=== PATIENT | female | born 1950 | race Caucasian/White ===

== ENCOUNTER 2017-01-08 23:20 | Emergency (ER) | payer MEDICARE, SELFPAY ==
[2017-01-08] MEDS ORDERED: Adenosine 12 MG/4 ML SDV ONE (23:28)
--- NOTE | 2017-01-08 23:50 | EDM.PDOC ---
ED HISTORY OF PRESENT ILLNESS - General Chief Complaint: Cardiovascular Problem Stated Complaint: [facility] Time Seen by Provider: 01/08/17 23:29 Source of Information: Reports: Patient, RN notes reviewed History Limitations: Reports: No limitations - History of Present Illness INITIAL COMMENTS - FREE TEXT/NARRATIVE: The patient states that she developed palpitations this morning, the sensation of a racing heart, but that her symptoms became worse this evening. She denies having chest pain, dyspnea nausea, and diaphoresis, or sense of impending doom. She did have 4 episodes of diarrhea today, and she reports developing bilateral tingling hands tonight. No recent vomiting or constipation. The patient states that she has had similar symptoms perhaps 5 times since 1999. She states that her Cloth Tester believes that she has atrial fibrillation and is treating her with amiodarone and Coumadin. Medical records indicate that she was seen in this ED on 03/31/2016 with a narrow complex regular tachycardia which converted to a normal sinus rhythm after adenosine. She was also seen in this ED 11/01/2014 for a similar- appearing ECG - narrow complex regular tachycardia. On that earlier visit, the patient was not given adenosine. She was given Cardizem and converted to a normal sinus rhythm after about 15 minutes. Her diagnosis was nonspecific tachycardia. - Related Data Allergies/ADRs: Allergies Allergy/AdvReac Type Severity Reaction Status Date / Time No Known Allergies Allergy Verified 05/25/15 23:50 Home Meds: Home Meds Acetaminophen 650 mg PO Q4H PRN 11/01/14 [History] Calcium Carbonate 500 mg PO BID 11/01/14 [History] Diltiazem HCl [Diltiazem 24Hr ER] 360 mg PO DAILY #30 cap.er.24h 11/01/14 [Rx] Furosemide [Lasix] 20 mg PO DAILY 11/01/14 [History] LORazepam 1 mg PO BID 11/01/14 [History] Magnesium Citrate 400 mg PO DAILY 11/01/14 [History] Niacin 100 mg PO DAILY 11/01/14 [History] Omeprazole 20 mg PO DAILY 11/01/14 [History] Potassium Chloride [Klor-Con M20] 20 meq PO DAILY 11/01/14 [History] Pravastatin [Pravachol] 40 mg PO BEDTIME 11/01/14 [History] Warfarin [Coumadin] 2 mg PO MOWEFR 11/01/14 [History] Warfarin [Coumadin] 4 mg PO ASDIRECTED 11/01/14 [History] metFORMIN [Glucophage] 500 mg PO BID 11/01/14 [History] A/C/E/Zinc Ox/Cupric Ox/Lutein [Macuvite [employer] Tablet] 1 tab PO DAILY [History] Acetaminophen/Diphenhydramine [Pain Relief Pm Caplet] 1 tab PO BEDTIME 03/31/16 [History] Albuterol [Proair HFA] 2 puff INH Q6H PRN 03/31/16 [History] Cholecalciferol (Vitamin D3) [Vitamin D3] 800 units PO DAILY 03/31/16 [History] Lisinopril 20 mg PO DAILY 03/31/16 [History] Amiodarone HCl 100 mg PO DAILY 01/08/17 [History] Warfarin [Coumadin] 5 mg PO WEEKLY 01/08/17 [History] Past Medical History Other HEENT History: wears eyeglasses Cardiovascular History: Reports: High cholesterol, Hypertension Respiratory History: Reports: COPD (not formally diagnosed) Gastrointestinal History: Reports: GERD 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 History: Reports: Musculoskeletal History: Reports: Arthritis, Back pain, chronic, Fracture Psychiatric History: Reports: Anxiety, Depression Endocrine/Metabolic History: Reports: Diabetes, type II, Obesity/BMI 30+ Oncologic (Cancer) History: Reports: Breast - Infectious Disease History Infectious Disease History: Reports: Chicken pox, Mumps - Past Surgical History HEENT Surgical History: Reports: Cataract surgery, Tonsillectomy GI Surgical History: Reports: Appendectomy, Cholecystectomy Female Surgical History: Reports: Hysterectomy, Salpingo-oophorectomy, Other (see below) (Left lumpectomy) Neurological Surgical History: Reports: Lumbar spine (fusion?) Musculoskeletal Surgical History: Reports: Knee replacement (left) Social & Family History - Family History Family Medical History: Noncontributory - Tobacco Use Smoking Status *Q: Never Smoker Second Hand Smoke Exposure: No - Caffeine Use Caffeine Use: Reports: Soda - Alcohol Use Alcohol Use History: Yes Days Per Week of Alcohol Use: 0 Alcohol Use Frequency: Socially - Recreational Drug Use Recreational Drug Use: No - Living Situation & Occupation Living situation: Reports: , alone Occupation: employed (Part-time [employer]) ED ROS GENERAL - Review of Systems Review Of Systems: See Below Constitutional: Reports: no symptoms HEENT: Reports: No symptoms Respiratory: Reports: No Symptoms Cardiovascular: Reports: No symptoms Endocrine: Reports: no symptoms GI/Abdominal: Reports: Diarrhea (as per the HPI) : Reports: no symptoms Musculoskeletal: Reports: no symptoms Skin: Reports: no symptoms Neurological: Reports: No Symptoms Psychiatric: Reports: No symptoms Hematologic/Lymphatic: Reports: no symptoms Immunologic: Reports: no symptoms ED EXAM, GENERAL - Physical Exam Exam: See Below Exam Limited By: No limitations General Appearance: alert, WD/WN, anxious, mild distress Eye Exam: bilateral eye: EOMI, normal inspection Ears: normal external exam, hearing grossly normal Ear Exam: bilateral ear: auricle normal Nose: normal inspection, no blood Throat/Mouth: Normal inspection, Normal lips, Normal voice, No airway compromise Head: atraumatic, normocephalic Neck: normal inspection, full range of motion Respiratory/Chest: no respiratory distress, lungs clear, normal breath sounds, no accessory muscle use, chest non-tender Cardiovascular: normal peripheral pulses, no edema, no gallop, no JVD, no murmur , no rub, tachycardia (regular) Peripheral Pulses: 4+: radial (L), radial (R) GI/Abdominal: normal bowel sounds, soft, non tender, no organomegaly, no distention, no abnormal bruit, no mass, other (Obese) Extremities: normal inspection, normal range of motion, non-tender, normal capillary refill, no pedal edema Neurological: alert, oriented, normal cognition, no motor/sensory deficits Psychiatric: normal affect Skin Exam: Warm, Dry, Intact, Normal color, No rash Lymphatic: no adenopathy EKG INTERPRETATION EKG Date: 01/08/17 Time: 23:21 Rhythm: other (Suspect A-flutter 2:1) Rate (beats/min): 149 [place]: LAD-left axis deviation P-wave: absent QRS: normal ST-T: depressed (lateral leads, likely rate related) QT: prolonged (QTc 523) Comparison: other: (Nearly identical to ECG and 03/31/2016, subsequently converted to NSR with adenosine) Course - Vital Signs Last Recorded V/S: Last Vital Signs Temp 36.8 C 01/08/17 23:23 Pulse 85 01/09/17 03:10 Resp 18 01/09/17 03:10 BP 122/67 01/09/17 03:10 Pulse Ox 97 01/09/17 03:10 - Orders/Labs/Meds Orders: Active Orders 24 hr Category Date Time Status EKG Documentation Completion [RC] STAT Care 01/08/17 23:30 Active EKG Documentation Completion [RC] STAT Care 01/09/17 00:31 Active Ang Chest [CT] Stat Exams 01/09/17 01:12 Taken Chest 1V Frontal [CR] Stat Exams 01/08/17 23:57 Taken Sodium Chloride 0.9% [Normal Saline] 1,000 ml Med 01/09/17 01:15 Active IV ASDIRECTED Sodium Chloride 0.9% [Normal Saline] 100 ml Med 01/09/17 01:15 Active IV ASDIRECTED Sodium Chloride 0.9% [Saline Flush] Med 01/09/17 01:15 Active 10 ml FLUSH ONETIME PRN Medication Orders Sodium Chloride (Normal Saline) 1,000 mls @ 150 mls/hr IV ASDIRECTED KESHA Last Admin: 01/09/17 02:08 Dose: 150 mls/hr Sodium Chloride (Normal Saline) 100 mls @ 65 mls/hr IV ASDIRECTED KESHA Last Admin: 01/09/17 02:16 Dose: 65 mls/hr Sodium Chloride (Saline Flush) 10 ml FLUSH ONETIME PRN PRN Reason: IV FLUSH Last Admin: 01/09/17 02:11 Dose: 10 ml Admin: 01/09/17 02:08 Dose: 10 ml Labs: Laboratory Tests 01/08/17 01/08/17 01/08/17 Range/Units 23:55 23:55 23:55 WBC 9.45 (3.98-10.04) K/mm3 RBC 4.75 (3.98-5.22) M/mm3 Hgb 14.0 (11.2-15.7) gm/L Hct 41.2 (34.1-44.9) % MCV 86.7 (79.4-94.8) fl MCH 29.5 (25.6-32.2) pg MCHC 34.0 (32.2-35.5) g/dl RDW Std Deviation 45.0 (36.4-46.3) fL Plt Count 245 (182-369) K/mm3 MPV 9.5 (9.4-12.3) fl Neutrophils % (Manual) 79 H (40-60) % Band Neutrophils % 0 (0-10) % Lymphocytes % (Manual) 14 L (20-40) % Atypical Lymphs % 0 % Monocytes % (Manual) 7 (2-10) % Eosinophils % (Manual) 0 L (0.7-5.8) % Basophils % (Manual) 0 L (0.1-1.2) Platelet Estimate Adequate Plt Morphology Comment Normal RBC Morph Comment Normal PT 16.7 H (8.0-13.0) SECONDS INR 1.49 APTT 32 (22-36) SECONDS D-Dimer, Quantitative 1.44 H (0.19-0.59) mg/L Sodium 140 (136-145) mEq/L Potassium 3.7 (3.5-5.1) mEq/L Chloride 101 (98-107) mEq/L Carbon Dioxide 24 (21-32) mEq/L Anion Gap 18.7 H (5-15) BUN 15 (7-18) mg/dL Creatinine 0.8 (0.55-1.02) mg/dL Est Cr Clr Drug Dosing 64.76 mL/min Estimated GFR (MDRD) > 60 (>60) mL/min BUN/Creatinine Ratio 18.8 H (14-18) Glucose 126 H (80-115) mg/dL Calcium 8.9 (8.5-10.1) mg/dL Magnesium 1.7 L (1.8-2.4) mg/dl Total Bilirubin 1.0 (0.2-1.0) mg/dL AST 37 (15-37) U/L ALT 27 (14-59) U/L Alkaline Phosphatase 79 (46-116) U/L Troponin I 0.052 (0.00-0.056) ng/mL B-Natriuretic Peptide (0-100) pg/mL Total Protein 6.9 (6.4-8.2) g/dl Albumin 3.9 (3.4-5.0) g/dl Globulin 3.0 gm/dL Albumin/Globulin Ratio 1.3 (1-2) 03/26/17 Range/Units 23:55 WBC (3.98-10.04) K/mm3 RBC (3.98-5.22) M/mm3 Hgb (11.2-15.7) gm/L Hct (34.1-44.9) % MCV (79.4-94.8) fl MCH (25.6-32.2) pg MCHC (32.2-35.5) g/dl RDW Std Deviation (36.4-46.3) fL Plt Count (182-369) K/mm3 MPV (9.4-12.3) fl Neutrophils % (Manual) (40-60) % Band Neutrophils % (0-10) % Lymphocytes % (Manual) (20-40) % Atypical Lymphs % % Monocytes % (Manual) (2-10) % Eosinophils % (Manual) (0.7-5.8) % Basophils % (Manual) (0.1-1.2) Platelet Estimate Plt Morphology Comment RBC Morph Comment PT (8.0-13.0) SECONDS INR APTT (22-36) SECONDS D-Dimer, Quantitative (0.19-0.59) mg/L Sodium (136-145) mEq/L Potassium (3.5-5.1) mEq/L Chloride (98-107) mEq/L Carbon Dioxide (21-32) mEq/L Anion Gap (5-15) BUN (7-18) mg/dL Creatinine (0.55-1.02) mg/dL Est Cr Clr Drug Dosing mL/min Estimated GFR (MDRD) (>60) mL/min BUN/Creatinine Ratio (14-18) Glucose (80-115) mg/dL Calcium (8.5-10.1) mg/dL Magnesium (1.8-2.4) mg/dl Total Bilirubin (0.2-1.0) mg/dL AST (15-37) U/L ALT (14-59) U/L Alkaline Phosphatase (46-116) U/L Troponin I (0.00-0.056) ng/mL B-Natriuretic Peptide 516 H (0-100) pg/mL Total Protein (6.4-8.2) g/dl Albumin (3.4-5.0) g/dl Globulin gm/dL Albumin/Globulin Ratio (1-2) Meds: Medications Generic Name Dose Route Start Last Admin Trade Name Freq PRN Reason Stop Dose Admin Sodium Chloride 1,000 mls @ 150 mls/hr 01/09/17 01:15 01/09/17 02:08 Normal Saline IV 150 mls/hr ASDIRECTED KESHA Administration Sodium Chloride 100 mls @ 65 mls/hr 01/09/17 01:15 01/09/17 02:16 Normal Saline IV 65 mls/hr ASDIRECTED KESHA Administration Sodium Chloride 10 ml 01/09/17 01:15 01/09/17 02:11 Saline Flush FLUSH 10 ml ONETIME PRN Administration IV FLUSH Discontinued Medications Generic Name Dose Route Start Last Admin Trade Name [place] PRN Reason Stop Dose Admin Adenosine Confirm 01/08/17 23:28 01/09/17 00:32 Adenocard Administered 01/08/17 23:29 Not Given Dose 12 mg .ROUTE .STK-MED ONE Adenosine 12 mg 01/09/17 00:30 01/09/17 00:32 Adenocard IVPUSH 01/09/17 00:31 12 mg NOW ONE Administration Iopamidol 100 ml 01/09/17 01:15 01/09/17 02:10 Isovue-370 (76%) IVPUSH 01/09/17 01:16 100 ml ONETIME ONE Administration Iopamidol 50 ml 01/09/17 01:15 01/09/17 02:10 Isovue-370 (76%) IVPUSH 01/09/17 01:16 50 ml ONETIME ONE Administration - Radiology Interpretation Free Text/Narrative:: Portal chest radiograph appears to be grossly normal. Cardiac silhouette is at the upper limits of normal. No pulmonary vascular congestion. No pleural effusions. No focal infiltrate. No pneumothorax. Right-sided defibrillation pad noted. Formal read per the Radiologist pending. CT angiogram of the chest is read by virtual radiology as: 1. No evidence of pulmonary embolus 2. Pulmonary arterial hypertension 3. Very subtle mosaic attenuation or pattern to the lung parenchyma suggests underlying small airways disease. - Re-Assessments/Exams Free Text/Narrative Re-Assessment/Exam: 01/09/17 00:19 The patient was given adenosine 12 mg IVP with a continuous ECG. The patient converted to a normal sinus rhythm, and has remained in that rhythm. Post- procedure ECG incision normal sinus rhythm at 93 beats per minute. There are no acute ST or T wave changes. No intraventricular conduction delays. No LAD. There is likely LVH. This is an otherwise normal ECG. 01/09/17 01:15 The patient's D-dimer returned elevated at 1.44. While it's unlikely that a PE would cause an AVNRT or SVT, I have ordered a CTA to rule out PE. 01/09/17 02:42 Test results discussed with the patient. Today's workup is unremarkable. The patient remains in NSR following chemical cardioversion with adenosine. 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 Additionally, her presentation is vertex" to that of 03/31/2016, and her ECG is present medical to that of 2014, although at that time she was not treated with adenosine. I have found no ECGs consistent with atrial fibrillation or atrial flutter. I am suggesting to the patient that she followup with her tank driver, Dr. Ryan, for reevaluation. If the patient indeed has AVNRT and no history of atrial fibrillation or flutter, she does not need to be on either Coumadin or amiodarone. 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 An ECG showed a narrow complex tachycardia, regular, at 149 beats per minute. You converted to a normal sinus rhythm after treatment with adenosine. It is MOST LIKELY that your tachycardia was due to an AVNRT. On review of your prior medical records, it appears you were suffering from the exact same thing on 03/31/2016. You were converted to a normal sinus rhythm after adenosine then, too. Additionally, an ECG on 11/01/2014 looks the same as that from 03/31/2016 and [facility], although you were not treated with adenosine on that visit. None of the ECGs we have on record show atrial fibrillation or atrial flutter. We recommend you discuss this with your Cloth Tester, Dr. Ryan. If you do not have atrial fibrillation or atrial flutter, you probably don't need to be on Coumadin and amiodarone. Until then, continue to take your usual medications as prescribed. If any other problems, please do not hesitate to return to the ER. DO NOT TAKE METFORMIN UNTIL MORNING OF JANUARY 11 - My Orders Last 24 Hours: My Active Orders 01/08/17 23:30 EKG Documentation Completion [RC] STAT 01/08/17 23:57 Chest 1V Frontal [CR] Stat 01/09/17 00:31 EKG Documentation Completion [RC] STAT 01/09/17 01:12 Ang Chest [CT] Stat 01/09/17 01:15 Sodium Chloride 0.9% [Normal Saline] 1,000 ml IV ASDIRECTED Sodium Chloride 0.9% [Normal Saline] 100 ml IV ASDIRECTED Sodium Chloride 0.9% [Saline Flush] 10 ml FLUSH ONETIME PRN - Assessment/Plan Last 24 Hours: My Active Orders 01/08/17 23:30 EKG Documentation Completion [RC] STAT 01/08/17 23:57 Chest 1V Frontal [CR] Stat 01/09/17 00:31 EKG Documentation Completion [RC] STAT 01/09/17 01:12 Ang Chest [CT] Stat 01/09/17 01:15 Sodium Chloride 0.9% [Normal Saline] 1,000 ml IV ASDIRECTED Sodium Chloride 0.9% [Normal Saline] 100 ml IV ASDIRECTED Sodium Chloride 0.9% [Saline Flush] 10 ml FLUSH ONETIME PRN
[2017-01-09] MEDS ORDERED: Adenosine 12 MG/4 ML SDV IVPUSH ONE (00:30)
[2017-01-09] MEDS ORDERED: Sodium Chloride 0.9% 1,000 ML IV SCH (01:15)
[2017-01-09] MEDS ORDERED: Iopamidol 755 Mg/ML 100 ML Bottle IVPUSH ONE (01:15)
[2017-01-09] MEDS ORDERED: Iopamidol 755 MG/ML 50 ML Bottle IVPUSH ONE (01:15)
[2017-01-09] MEDS ORDERED: Sodium Chloride 0.9% 100 ML IV SCH (01:15)
[2017-01-09] MEDS: Sodium Chloride 0.9% 10 ML Syringe FLUSH PRN ×2 (02:08→02:11)
[2017-01-09 03:20] VITALS: BP 122/67
--- NOTE | 2017-01-09 08:34 | CT ---
CT chest Technique: Multiple axial sections through the chest were obtained. Intravenous contrast was utilized. Study was performed as a pulmonary angiogram. Pulmonary arteries are not optimally opacified. No filling defects are seen within the main or segmental branches to indicate pulmonary emboli. Smaller distal subsegmental pulmonary emboli could be missed. Pulmonary arteries are slightly increased in size suggesting an element of pulmonary arterial hypertension. Mediastinum and hilar regions show no adenopathy or mass. Aorta appears without aneurysm. Mild atherosclerotic change seen within the aorta. Coronary arteries show no calcifications. No pericardial thickening is seen. Small portion of the visualized upper abdominal structures are within normal limits. Previous cholecystectomy is noted. Hazy ground-glass appearance is scattered within both lungs which may represent mild infection, pulmonary vascular congestion or early pulmonary fibrosis. Impression: 1. No findings of pulmonary embolism. Mild pulmonary arterial hypertension appears to be present. 2. Hazy ground-glass appearance within both lungs as described above. Diagnostic code #3 I agree with preliminary report issued by [facility] (preliminary report dictated on 01/09/17, 3:19 AM Central Time)
--- NOTE | 2017-01-09 10:03 | CR ---
Chest: Portable view of the chest was obtained. Comparison: Previous chest x-ray of 03/31/16. Heart size is at the upper limits of normal. Tortuous thoracic aorta is seen. Lungs are clear. Surgical clips are seen within the left axillary region. Mild degenerative change is seen within the right shoulder. Degenerative spurring is noted within the spine. Bony structures are osteopenic. Impression: 1. Incidental findings. Nothing acute is identified on portable chest x-ray. Diagnostic code #2
== END 2017-01-09 09:10 | disposition home or self-care (01) ==
LOC: JD.ED 23:20
DX: I47.1 Supraventricular tachycardia (principal); E78.00 Pure hypercholesterolemia, unspecified; I10 Essential (primary) hypertension; K21.9 Gastro-esophageal reflux disease without esophagitis; F41.8 Other specified anxiety disorders; E11.9 Type 2 diabetes mellitus without complications; Z79.01 Long term (current) use of anticoagulants; Z79.899 Other long term (current) drug therapy
CPT/HCPCS: 36415; 71010; 71275; 80053; 83735; 83880; 84484; 85025; 85379; 85610; 85730; 93005; 96360; 99285; A9270; J7030; J7040; J7050; Q9967; 99284; J0153

== ENCOUNTER 2018-04-06 14:14 | Emergency (ER) | payer MEDICARE, MEDICAID ==
[2018-04-06] MEDS ORDERED: HYDROmorphone 0.5 MG/0.5 ML SYRINGE IVPUSH ONE ×2 (15:08→16:37)
[2018-04-06] MEDS ORDERED: Ondansetron 4 MG/2 ML SDV IVPUSH ONE (15:09)
--- NOTE | 2018-04-06 16:19 | EDM.PDOC ---
ED HPI GENERAL MEDICAL PROBLEM - General Chief Complaint: Lower Extremity Injury/Pain Stated Complaint: [facility] Time Seen by Provider: 04/06/18 15:05 Source of Information: Reports: Patient History Limitations: Reports: No Limitations - History of Present Illness INITIAL COMMENTS - FREE TEXT/NARRATIVE: 67-year-old female presents for evaluation and treatment of injury to the right knee. Patient reports that she was walking outside when she fell into a hole. Unclear exactly how she fell. She is primarily complaining of pain to the right knee. Denies any head trauma or neck pain.. She states she has not been able to walk. When she did fall she felt her right knee pop. Unable to straighten the knee. Patient arrives EMS. She received fentanyl en route which is no longer providing pain relief. Patient has a past medical history of breast cancer and currently receiving chemotherapy. She also has a history of atrial fibrillation and is on Coumadin for this. 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(s) Right Knee Pain Score (Numeric/FACES): 10 - Related Data Allergies Allergy/AdvReac Type Severity Reaction Status Date / Time No Known Allergies Allergy Verified 04/06/18 14:23 Home Meds: Home Meds Acetaminophen 650 mg PO Q4H PRN 11/01/14 [History] Furosemide [Lasix] 20 mg PO DAILY 11/01/14 [History] LORazepam 1 mg PO BID 11/01/14 [History] Omeprazole 20 mg PO DAILY 11/01/14 [History] Potassium Chloride [Klor-Con M20] 20 meq PO DAILY 11/01/14 [History] Pravastatin [Pravachol] 40 mg PO BEDTIME 11/01/14 [History] Warfarin [Coumadin] 4 mg PO DAILY 11/01/14 [History] metFORMIN [Glucophage] 500 mg PO BID 11/01/14 [History] A/C/E/Zinc Ox/Cupric Ox/Lutein [Macuvite Eye Care Tablet] 1 tab PO DAILY [History] Ascorbic Acid [Vitamin C] 1,000 mg PO DAILY 04/06/18 [History] Calcium Carbonate/Vitamin D3 [Calcium 1,000 + D3 Caplet] 1 each PO DAILY [History] Diltiazem HCl [Cardizem] 30 mg PO TID 04/06/18 [History] OLANZapine [ZyPREXA] 5 mg PO DAILY 04/06/18 [History] Ondansetron [Zofran ODT] 8 mg PO Q6H PRN 04/06/18 [History] Prochlorperazine [Compazine] 10 mg PO QID PRN 04/06/18 [History] Past Medical History Other HEENT History: wears eyeglasses Cardiovascular History: Reports: High Cholesterol, Hypertension Respiratory History: Reports: COPD Gastrointestinal History: Reports: GERD 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: Musculoskeletal History: Reports: Arthritis, Back Pain, Chronic, Fracture Neurological History: Reports: Migraines Psychiatric History: Reports: Anxiety, Depression Endocrine/Metabolic History: Reports: Diabetes, Type II, Obesity/BMI 30+ Hematologic History: Reports: Other (See Below) Other Hematologic History: blood thinners Oncologic (Cancer) History: Reports: Breast - Infectious Disease History Infectious Disease History: Reports: Chicken Pox, Mumps - Past Surgical History HEENT Surgical History: Reports: Cataract Surgery, Tonsillectomy GI Surgical History: Reports: Appendectomy, Cholecystectomy Female Surgical History: Reports: Hysterectomy, Mastectomy, Salpingo- Oophorectomy, Other (See Below) Neurological Surgical History: Reports: Lumbar Spine Musculoskeletal Surgical History: Reports: Knee Replacement Oncologic Surgical History: Reports: Mastectomy Social & Family History - Family History Family Medical History: Noncontributory - Tobacco Use Smoking Status *Q: Never Smoker - Caffeine Use Caffeine Use: Reports: None - Recreational Drug Use Recreational Drug Use: No - Living Situation & Occupation Living situation: Reports: , Alone Occupation: Employed Review of Systems - Review of Systems Review Of Systems: See Below Musculoskeletal: Reports: Joint Pain (right knee). Denies: Neck Pain Neurological: Denies: Syncope ED EXAM, GENERAL - Physical Exam Exam: See Below Exam Limited By: No Limitations General Appearance: Alert, WD/WN, Moderate Distress, Obese, Other (tearful) Eye Exam: Bilateral Eye: Normal Inspection Respiratory/Chest: No Respiratory Distress, Lungs Clear, Normal Breath Sounds Cardiovascular: Normal Peripheral Pulses, Regular Rate, Rhythm, No Murmur Peripheral Pulses: 2+: Posterior Tibial (L), Posterior Tibial (R), Dorsalis Pedis (L), Dorsalis Pedis (R) Extremities: Other (Identifies pain to the right knee. Right knee is in a knee immobilizer by EMS. She feels better with the right hip externally rotated and the knee flexed to about 90. Unable to appreciate any obvious deformity due to the patient's body habitus.) Neurological: Alert, Oriented, Normal Cognition Psychiatric: Normal Affect, Normal Mood Skin Exam: Warm, Dry, Normal Color. No: Ecchymosis Course - Vital Signs Last Recorded V/S: Last Vital Signs Temp 98.2 F 04/06/18 14:18 Pulse 94 04/06/18 14:18 Resp 16 04/06/18 14:18 BP 124/76 04/06/18 14:18 Pulse Ox 100 04/06/18 14:18 - Orders/Labs/Meds Orders: Active Orders 24 hr Category Date Time Status Knee 1V or 2V Rt [CR] Stat Exams 04/06/18 15:09 Taken CBC WITH AUTO DIFF [HEME] Stat Lab 04/06/18 16:00 Ordered COMPREHENSIVE METABOLIC PN,CMP [CHEM] Stat Lab 04/06/18 16:00 Ordered INR,PT,PROTHROMBIN TIME [COAG] Stat Lab 04/06/18 16:01 Ordered PTT,PARTIAL THROMBOPLSTIN TIME [COAG] Stat Lab 04/06/18 16:01 Ordered Sodium Chloride 0.9% @ 100 MLS/HR(1000ml Bag) Med 04/06/18 16:45 Ordered Sodium Chloride 0.9% [Normal Saline] 1,000 ml IV ASDIRECTED Medication Orders Sodium Chloride (Normal Saline) 1,000 mls @ 100 mls/hr IV ASDIRECTED KESHA Last Admin: 04/06/18 16:54 Dose: 100 mls/hr Labs: Laboratory Tests 04/06/18 Range/Units 16:39 WBC 0.72 L* (3.98-10.04) K/mm3 RBC 3.37 L (3.98-5.22) M/mm3 Hgb 9.8 L (11.2-15.7) gm/L Hct 30.3 L (34.1-44.9) % MCV 89.9 (79.4-94.8) fl MCH 29.1 (25.6-32.2) pg MCHC 32.3 (32.2-35.5) g/dl RDW Std Deviation 46.9 H (36.4-46.3) fL Plt Count 166 L (182-369) K/mm3 MPV 10.4 (9.4-12.3) fl Neut % (Auto) 2.7 L (34.0-71.1) % Lymph % (Auto) 50.0 (19.3-51.7) % Sevier % (Auto) 40.3 H (4.7-12.5) % Eos % (Auto) 1.4 (0.7-5.8) Baso % (Auto) 5.6 H (0.1-1.2) % Neut # (Auto) 0.02 L (1.56-6.13) K/mm3 Lymph # (Auto) 0.36 L (1.18-3.74) K/mm3 Sevier # (Auto) 0.29 (0.24-0.36) K/mm3 Eos # (Auto) 0.01 L (0.04-0.36) K/mm3 Baso # (Auto) 0.04 (0.01-0.08) K/mm3 Meds: Medications Generic Name Dose Route Start Last Admin Trade Name Freq PRN Reason Stop Dose Admin Sodium Chloride 1,000 mls @ 100 mls/hr 04/06/18 16:45 04/06/18 16:54 Normal Saline IV 100 mls/hr ASDIRECTED KESHA Administration Discontinued Medications Generic Name Dose Route Start Last Admin Trade Name Freq PRN Reason Stop Dose Admin Hydromorphone HCl 1 mg 04/06/18 15:08 04/06/18 15:44 Dilaudid IVPUSH 04/06/18 15:09 1 mg ONETIME ONE Administration Hydromorphone HCl 0.5 mg 04/06/18 16:37 04/06/18 16:46 Dilaudid IVPUSH 04/06/18 16:38 0.5 mg ONETIME ONE Administration Lorazepam 0.5 mg 04/06/18 16:42 04/06/18 16:54 Ativan IVPUSH 04/06/18 16:43 0.5 mg ONETIME ONE Administration Ondansetron HCl 4 mg 04/06/18 15:09 04/06/18 15:16 Zofran IVPUSH 04/06/18 15:10 4 mg ONETIME ONE Administration - Radiology Interpretation Free Text/Narrative:: X-ray of the right knee shows a minimally displaced Belarusian fracture of the right distal femur. Attenuated by approximately 30. Only 2 views were able to be obtained due to pain. - Re-Assessments/Exams Free Text/Narrative Re-Assessment/Exam: 04/06/18 16:58 I reviewed the x-ray results with the patient. I discussed the case with Dr. Glaser, orthopedics python programmer. He felt that she would be Better served in [place] due to her chronic medical conditions that she has high risk. I discussed the case with Dr. German, orthopedics at [facility] in [place]. He agrees to accept the patient. He would like her to go through the ER. Dr. Washington , ER physician made aware. Discussed the case with Dr. Moreno, ER physician. We will attempt to give her more pain medication and put her in a knee immobilizer prior to transport. Patient is very anxious at this time. Will give ativan 0.5mg IV in addition to another 0.5mg IV dilaudid. Departure - Departure Time of Disposition: 17:01 Disposition: DC/Tfer to Other 70 Condition: Fair Clinical Impression: Femur fracture, right - Discharge Information Referrals: Jeniffer He PA-C [Physician Skiver Machine Operator] - Forms: ED Department Discharge Additional Instructions: Patient to go to [facility] in [place]. She is to go through the ER. Dr. Washington accepting. , orthopedics, notified. - My Orders Last 24 Hours: My Active Orders 04/06/18 15:09 Knee 1V or 2V Rt [CR] Stat 04/06/18 16:00 CBC WITH AUTO DIFF [HEME] Stat COMPREHENSIVE METABOLIC PN,CMP [CHEM] Stat 04/06/18 16:01 INR,PT,PROTHROMBIN TIME [COAG] Stat PTT,PARTIAL THROMBOPLSTIN TIME [COAG] Stat 04/06/18 16:45 Sodium Chloride 0.9% @ 100 MLS/HR(1000ml Bag) Sodium Chloride 0.9% [Normal Saline] 1,000 ml IV ASDIRECTED - Assessment/Plan Last 24 Hours: My Active Orders 04/06/18 15:09 Knee 1V or 2V Rt [CR] Stat 04/06/18 16:00 CBC WITH AUTO DIFF [HEME] Stat COMPREHENSIVE METABOLIC PN,CMP [CHEM] Stat 04/06/18 16:01 INR,PT,PROTHROMBIN TIME [COAG] Stat PTT,PARTIAL THROMBOPLSTIN TIME [COAG] Stat 04/06/18 16:45 Sodium Chloride 0.9% @ 100 MLS/HR(1000ml Bag) Sodium Chloride 0.9% [Normal Saline] 1,000 ml IV ASDIRECTED
[2018-04-06] MEDS ORDERED: LORazepam 2 MG/ML SDV IVPUSH ONE (16:42)
[2018-04-06] MEDS ORDERED: Sodium Chloride 0.9% 1,000 ML IV SCH (16:45)
[2018-04-06 17:24] VITALS: BP 147/69
--- NOTE | 2018-04-09 07:49 | CR ---
Right knee: Two views of the right knee were obtained. Slightly comminuted fracture is identified within the distal femur. Angulation is seen anteriorly. Possible impacted fracture noted within the lateral tibial plateau. Osteophytes are noted off both medial and lateral joint compartments. Degenerative spurring also seen within the patellofemoral joint. Bony structures are osteoporotic. Impression: 1. Angulated distal right femur fracture. 2. Possible impacted fracture within the lateral tibial plateau. 3. Osteopenia and degenerative change. Diagnostic code #3
== END 2018-04-06 17:08 | disposition other institution (70) ==
LOC: JD.ED 14:14
DX: S72.401A Unspecified fracture of lower end of right femur, initial encounter for closed fracture (principal); E78.00 Pure hypercholesterolemia, unspecified; I10 Essential (primary) hypertension; J44.9 Chronic obstructive pulmonary disease, unspecified; K21.9 Gastro-esophageal reflux disease without esophagitis; F41.9 Anxiety disorder, unspecified; F32.9 Major depressive disorder, single episode, unspecified; E11.9 Type 2 diabetes mellitus without complications; Z79.899 Other long term (current) drug therapy; Z79.01 Long term (current) use of anticoagulants; W17.2XXA Fall into hole, initial encounter
CPT/HCPCS: 36415; 73560; 80053; 85025; 85610; 85730; 96374; 96375; 96376; 99285; J1170; J2060; J2405; J7040; 99284

== ENCOUNTER 2018-05-03 11:34 | Inpatient (IN) | payer MEDICARE, MEDICAID ==
--- NOTE | 2018-05-03 12:10 | EDM.PDOC ---
ED HPI GENERAL MEDICAL PROBLEM - General Chief Complaint: Fever Stated Complaint: FEVERS/CYSTS Time Seen by Provider: 05/03/18 11:52 Source of Information: Reports: Patient, RN Notes Reviewed - History of Present Illness INITIAL COMMENTS - FREE TEXT/NARRATIVE: 67 year old female transferred here from the [facility] for evaluation of fever, labial cyst. She states she has become aware of the cyst in about the last 2 days, some localized discomfort. She does have hx of breast cancer, has had previous double mastectomy, currently on chemo with her last chemo about 2 weeks ago. She has hx of Htn, A fib. on coumadin, Type 2 diabetes. She had fever of 101 last evening at the ID. She did get 1 gram of rocephin IM at the ID around 10 PM last evening. She is not coughing. Navarro has no voiding sx. 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 - Related Data Allergies Allergy/AdvReac Type Severity Reaction Status Date / Time albuterol Allergy Other Verified 05/03/18 11:57 azithromycin Allergy Other Verified 05/03/18 11:57 celecoxib Allergy Other Verified 05/03/18 11:57 fluticasone Allergy Other Verified 05/03/18 11:57 metoprolol Allergy Other Verified 05/03/18 11:57 Home Meds: Home Meds Acetaminophen 650 mg PO Q4H PRN 11/01/14 [History] Furosemide [Lasix] 20 mg PO DAILY 11/01/14 [History] LORazepam 1 mg PO BID 11/01/14 [History] Omeprazole 20 mg PO DAILY 11/01/14 [History] Potassium Chloride [Klor-Con M20] 20 meq PO DAILY 11/01/14 [History] Pravastatin [Pravachol] 40 mg PO BEDTIME 11/01/14 [History] Warfarin [Coumadin] 5 mg PO ASDIRECTED 11/01/14 [History] metFORMIN [Glucophage] 500 mg PO BID 11/01/14 [History] A/C/E/Zinc Ox/Cupric Ox/Lutein [Macuvite Eye Care Tablet] 1 tab PO DAILY [History] Ascorbic Acid [Vitamin C] 1,000 mg PO DAILY 04/06/18 [History] Calcium Carbonate/Vitamin D3 [Calcium 1,000 + D3 Caplet] 1 each PO DAILY [History] Diltiazem HCl [Cardizem] 30 mg PO TID 04/06/18 [History] Ibuprofen 200 mg PO Q4H PRN 05/03/18 [History] Lisinopril 20 mg PO DAILY 05/03/18 [History] Multivitamin/Iron/Folic Acid [Centrum Adults Tablet] 1 each PO DAILY 05/03/18 [ History] Polyethylene Glycol 3350 [MiraLAX] 17 gm PO DAILY PRN 05/03/18 [History] Warfarin [Coumadin] 7.5 mg PO ASDIRECTED 05/03/18 [History] oxyCODONE 5 mg PO Q4H PRN 05/03/18 [History] Past Medical History HEENT History: Reports: Impaired Vision Other HEENT History: wears eyeglasses Cardiovascular History: Reports: Afib, High Cholesterol, Hypertension Respiratory History: Reports: COPD Gastrointestinal History: Reports: GERD Genitourinary History: Reports: Urinary Incontinence 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: Musculoskeletal History: Reports: Arthritis, Back Pain, Chronic, Fracture Neurological History: Reports: Migraines Psychiatric History: Reports: Anxiety, Depression Endocrine/Metabolic History: Reports: Diabetes, Type II, Obesity/BMI 30+ Hematologic History: Reports: Other (See Below) Other Hematologic History: blood thinners, chemo treatments Oncologic (Cancer) History: Reports: Breast - Infectious Disease History Infectious Disease History: Reports: Chicken Pox, Mumps - Past Surgical History HEENT Surgical History: Reports: Cataract Surgery, Tonsillectomy GI Surgical History: Reports: Appendectomy, Cholecystectomy Female Surgical History: Reports: Hysterectomy, Mastectomy, Salpingo- Oophorectomy, Other (See Below) Neurological Surgical History: Reports: Lumbar Spine Musculoskeletal Surgical History: Reports: Knee Replacement Oncologic Surgical History: Reports: Mastectomy Social & Family History - Family History Family Medical History: Noncontributory - Tobacco Use Smoking Status *Q: Never Smoker - Caffeine Use Caffeine Use: Reports: Coffee, Soda - Recreational Drug Use Recreational Drug Use: No - Living Situation & Occupation Living situation: Reports: , Alone Occupation: Employed ED ROS GENERAL - Review of Systems Review Of Systems: See Below Constitutional: Reports: Fever (fever of 101.5 last evening, low grade this morning at NH, 97.8 on arrival to ED) HEENT: Denies: Rhinitis, Sinus Problem, Throat Pain Respiratory: Denies: Shortness of Breath, Wheezing, Cough Cardiovascular: Denies: Chest Pain GI/Abdominal: Reports: Nausea (mild nausea last evening). Denies: Abdominal Pain, Vomiting Musculoskeletal: Reports: Leg Pain (improving) Skin: Denies: Rash Neurological: Reports: Headache (last evening, gone). Denies: Numbness, Tingling, Weakness ED EXAM, GENERAL - Physical Exam Exam: See Below General Appearance: Alert, No Apparent Distress Eye Exam: Bilateral Eye: PERRL Throat/Mouth: Normal Inspection, Normal Oropharynx Head: Atraumatic. No: Facial Swelling Neck: Supple, Full Range of Motion. No: Lymphadenopathy (L), Lymphadenopathy (R ) Respiratory/Chest: No Respiratory Distress, Lungs Clear, Normal Breath Sounds Cardiovascular: Regular Rate, Rhythm (Female) Exam: Other (small area of erythema, swelling R labia, localized tenderness, small scab present but no eveidence of recent drainage) Back Exam: No: CVA Tenderness (L), CVA Tenderness (R) Extremities: Other (R leg brace). No: Increased Warmth (calves nontender bilat) , Redness Neurological: No Motor/Sensory Deficits Skin Exam: Warm, Dry, Normal Color, No Rash Course - Vital Signs Last Recorded V/S: Last Vital Signs Temp 98.7 F 05/03/18 11:38 Pulse 90 05/03/18 11:38 Resp 18 05/03/18 11:38 BP 125/48 L 05/03/18 11:38 Pulse Ox 97 05/03/18 11:38 - Orders/Labs/Meds Orders: Active Orders 24 hr Category Date Time Status Peripheral IV Care [RC] . DIRECTED Care 05/03/18 13:55 Active CULTURE ANAEROBIC + SMEAR [RM] Stat Lab 05/03/18 13:15 Received CULTURE BLOOD [BC] Stat Lab 05/03/18 13:53 Ordered CULTURE BLOOD [BC] Stat Lab 05/03/18 13:54 Ordered Piperacillin/Tazobactam [Zosyn] 4.5 gm Med 05/04/18 00:00 Active Sodium Chloride 0.9% [Normal Saline] 100 ml IV Q8H Sodium Chloride 0.9% [Saline Flush] Med 05/03/18 13:55 Active 10 ml FLUSH ASDIRECTED PRN Peripheral IV Insertion Adult [OM.PC] Stat Oth 05/03/18 13:55 Ordered Medication Orders Piperacillin Sod/Tazobactam (Sod 4.5 gm/ Sodium Chloride) 100 mls @ 25 mls/hr IV Q8H KESHA Sodium Chloride (Saline Flush) 10 ml FLUSH ASDIRECTED PRN PRN Reason: Keep Vein Open Labs: Laboratory Tests 05/03/18 05/03/18 05/03/18 Range/Units 12:20 12:20 12:20 WBC 0.41 L* (3.98-10.04) K/mm3 RBC 2.66 L (3.98-5.22) M/mm3 Hgb 7.9 L (11.2-15.7) gm/L Hct 25.2 L (34.1-44.9) % MCV 94.7 (79.4-94.8) fl MCH 29.7 (25.6-32.2) pg MCHC 31.3 L (32.2-35.5) g/dl RDW Std Deviation 63.6 H (36.4-46.3) fL Plt Count 87 L (182-369) K/mm3 MPV 11.1 (9.4-12.3) fl Neutrophils % (Manual) 0 L (40-60) % Band Neutrophils % 0 (0-10) % Lymphocytes % (Manual) 72 H (20-40) % Atypical Lymphs % 0 % Monocytes % (Manual) 12 H (2-10) % Eosinophils % (Manual) 8 H (0.7-5.8) % Basophils % (Manual) 0 L (0.1-1.2) Myelocytes % 4 Blast Cells % 4 Differential Comment See note Platelet Estimate See note Polychromasia 1+ slight Poikilocytosis 1+ slight Anisocytosis 1+ slight Ovalocytes Few RBC Morph Comment Not Reportable PT (9.5-12.1) SECONDS INR Sodium 138 (136-145) mEq/L Potassium 3.5 (3.5-5.1) mEq/L Chloride 102 (98-107) mEq/L Carbon Dioxide 27 (21-32) mEq/L Anion Gap 12.5 (5-15) BUN 11 (7-18) mg/dL Creatinine 0.6 (0.55-1.02) mg/dL Est Cr Clr Drug Dosing 85.18 mL/min Estimated GFR (MDRD) > 60 (>60) mL/min BUN/Creatinine Ratio 18.3 H (14-18) Glucose 122 H (80-115) mg/dL Calcium 8.2 L (8.5-10.1) mg/dL Total Bilirubin 0.6 (0.2-1.0) mg/dL AST 8 L (15-37) U/L ALT 12 L (14-59) U/L Alkaline Phosphatase 72 (46-116) U/L C-Reactive Protein 7.6 H* (<1.0) mg/dL Total Protein 5.9 L (6.4-8.2) g/dl Albumin 2.8 L (3.4-5.0) g/dl Globulin 3.1 gm/dL Albumin/Globulin Ratio 0.9 L (1-2) 05/03/18 Range/Units 12:20 WBC (3.98-10.04) K/mm3 RBC (3.98-5.22) M/mm3 Hgb (11.2-15.7) gm/L Hct (34.1-44.9) % MCV (79.4-94.8) fl MCH (25.6-32.2) pg MCHC (32.2-35.5) g/dl RDW Std Deviation (36.4-46.3) fL Plt Count (182-369) K/mm3 MPV (9.4-12.3) fl Neutrophils % (Manual) (40-60) % Band Neutrophils % (0-10) % Lymphocytes % (Manual) (20-40) % Atypical Lymphs % % Monocytes % (Manual) (2-10) % Eosinophils % (Manual) (0.7-5.8) % Basophils % (Manual) (0.1-1.2) Myelocytes % Blast Cells % Differential Comment Platelet Estimate Polychromasia Poikilocytosis Anisocytosis Ovalocytes RBC Morph Comment PT 23.0 H (9.5-12.1) SECONDS INR 2.14 Sodium (136-145) mEq/L Potassium (3.5-5.1) mEq/L Chloride (98-107) mEq/L Carbon Dioxide (21-32) mEq/L Anion Gap (5-15) BUN (7-18) mg/dL Creatinine (0.55-1.02) mg/dL Est Cr Clr Drug Dosing mL/min Estimated GFR (MDRD) (>60) mL/min BUN/Creatinine Ratio (14-18) Glucose (80-115) mg/dL Calcium (8.5-10.1) mg/dL Total Bilirubin (0.2-1.0) mg/dL AST (15-37) U/L ALT (14-59) U/L Alkaline Phosphatase (46-116) U/L C-Reactive Protein (<1.0) mg/dL Total Protein (6.4-8.2) g/dl Albumin (3.4-5.0) g/dl Globulin gm/dL Albumin/Globulin Ratio (1-2) Meds: Medications Generic Name Dose Route Start Last Admin Trade Name Freq PRN Reason Stop Dose Admin Piperacillin Sod/Tazobactam 100 mls @ 25 mls/hr 05/04/18 00:00 Sod 4.5 gm/ Sodium Chloride IV Q8H KESHA Sodium Chloride 10 ml 05/03/18 13:55 Saline Flush FLUSH ASDIRECTED PRN Keep Vein Open Discontinued Medications Generic Name Dose Route Start Last Admin Trade Name Freq PRN Reason Stop Dose Admin Vancomycin HCl 2 gm/ Sodium 250 mls @ 250 mls/hr 05/03/18 14:30 Chloride IV 05/03/18 15:29 ONETIME ONE Vancomycin HCl 2 gm/ Sodium 500 mls @ 500 mls/hr 05/03/18 14:56 Chloride IV 05/03/18 15:29 ONETIME ONE Piperacillin Sod/Tazobactam 100 mls @ 200 mls/hr 05/03/18 16:00 Sod 4.5 gm/ Sodium Chloride IV 05/03/18 16:29 ONETIME ONE Lidocaine HCl 50 ml 05/03/18 12:49 05/03/18 13:21 Xylocaine 1% INJECT 05/03/18 12:50 50 ml ONETIME ONE Administration - Re-Assessments/Exams Free Text/Narrative Re-Assessment/Exam: 05/03/18 14:48 Patient was sent her for 2 reasons, primarily asked by YARN EXAMINER SKEINS to drain R labial cyst, also concern for fever 101.5 last evening, continued low grade fever this morning. Procedure: of R labial cyst cleansed with chlorhexidine, anesth. with 1 % lidocaine, incised with # 11 scalpal, small amt of blood tinged fluid only, no pus, culture of blood tinged drainage taken. Have discussed with Dr Garcia, her Oncologist. He recomends blood cultures times 2, admit for broad spectrum abx coverage. This has been arranged, vancomycin started. Dr Paul will add addition broad spectrum antibiotic. Departure - Departure Time of Disposition: 13:20 Disposition: Admitted As Inpatient 66 Condition: Serious Clinical Impression: Labial cyst Neutropenia Qualifiers: Neutropenia type: secondary to cancer chemotherapy Qualified Code(s): D70.1 - Agranulocytosis secondary to cancer chemotherapy; T45.1X5A - Adverse effect of antineoplastic and immunosuppressive drugs, initial encounter Fever Qualifiers: Fever type: unspecified Qualified Code(s): R50.9 - Fever, unspecified - Discharge Information ED Communication - Discussed Case With (1) Discussed Case With (1): Admitting Provider (Dr Paul, decision to admit at about 14:05.) - My Orders Last 24 Hours: My Active Orders 05/03/18 13:15 CULTURE ANAEROBIC + SMEAR [RM] Stat 05/03/18 13:53 CULTURE BLOOD [BC] Stat 05/03/18 13:54 CULTURE BLOOD [BC] Stat 05/03/18 13:55 Peripheral IV Care [RC] . DIRECTED Sodium Chloride 0.9% [Saline Flush] 10 ml FLUSH ASDIRECTED PRN Peripheral IV Insertion Adult [OM.PC] Stat - Assessment/Plan Last 24 Hours: My Active Orders 05/03/18 13:15 CULTURE ANAEROBIC + SMEAR [RM] Stat 05/03/18 13:53 CULTURE BLOOD [BC] Stat 05/03/18 13:54 CULTURE BLOOD [BC] Stat 05/03/18 13:55 Peripheral IV Care [RC] . DIRECTED Sodium Chloride 0.9% [Saline Flush] 10 ml FLUSH ASDIRECTED PRN Peripheral IV Insertion Adult [OM.PC] Stat
[2018-05-03] MEDS ORDERED: Lidocaine 1% 50 ML MDV INJECT ONE (12:49)
[2018-05-03] MEDS ORDERED: Sodium Chloride 0.9% 10 ML Syringe FLUSH PRN (13:55)
[2018-05-03] MEDS ORDERED: Vancomycin 2 GM in Sodium Chloride 0.9% 500 ML IV ONE (14:56)
[2018-05-03] MEDS ORDERED: Piperacillin/Tazobactam 4.5 GM in Sodium Chloride 0.9% 100 ML IV ONE ×2 (16:00→20:30)
--- NOTE | 2018-05-03 16:50 | PCM.SN ---
- Free Text/Narrative Note: 1525 in room called for IV access pt asked me to access her port so her arm would not swell up Cecille Vega RN asked to come to room to trouble shoot attempt X2 to access port with 1 inch needle unsuccessful 1.5 inch needle obtained from [place] access port with ease all done under sterile conditions good blood return good flush sterile dress and date out of room at 1636
[2018-05-03] MEDS ORDERED: oxyCODONE 5 MG Tab PO PRN (19:37)
[2018-05-03] MEDS ORDERED: Polyethylene Glycol 3350 Powder 17 GM Packet PO PRN (19:37)
--- NOTE | 2018-05-03 19:37 | PCM.HP ---
H&P History of Present Illness - General Date of Service: 05/03/18 Admit Problem/Dx: Admission Diagnosis/Problem Admission Diagnosis/Problem Neutropenia associated with infection Source of Information: Patient, Provider History Limitations: Reports: No Limitations - History of Present Illness Initial Comments - Free Text/Narative: 67 year od female with breast cancer s/p CTX with neutropenia; had been seen by an urgent care and sent to the ED for I/D of a labial cyst. The patient reported discomfort associated with a fever of 101.5F on the evening [employer]. Th cyst was drained with a subsequent culture sent for analysis as well as BCs followed by Vancomycin started in the ED; she will be admitted to [facility] with telemetry. The plan of action was discussed by the ED doctor with her oncologist, Dr Garcia. An additional broad spectrum ATB will be added; the patient will be placed in reverse isolation. She will be admitted to [place] with telemetry. She is a full code. Onset of Symptoms: Reports: Gradual Symptom Onset Date: 04/30/18 Duration of Symptoms: Reports: Day(s):, Getting Worse, Waxing/Waning Location: Reports: Pelvis Quality: Reports: Throbbing Improves with: Reports: Medication Worsens with: Reports: None Associated Symptoms: Reports: Loss of Appetite, Malaise, Weakness - Related Data Allergies/Adverse Reactions: Allergies Allergy/AdvReac Type Severity Reaction Status Date / Time albuterol Allergy unknown Verified 05/03/18 17:13 azithromycin Allergy UNKNOWN Verified 05/03/18 17:15 celecoxib [From Celebrex] Allergy unknown Verified 05/03/18 17:13 fluticasone Allergy Other Verified 05/03/18 11:57 metoprolol Allergy unknown Verified 05/03/18 17:13 Home Medications: Home Meds Acetaminophen 650 mg PO Q4H PRN 11/01/14 [History] Furosemide [Lasix] 20 mg PO DAILY 11/01/14 [History] LORazepam 1 mg PO BID 11/01/14 [History] Omeprazole 20 mg PO DAILY 11/01/14 [History] Potassium Chloride [Klor-Con M20] 20 meq PO DAILY 11/01/14 [History] Pravastatin [Pravachol] 40 mg PO BEDTIME 11/01/14 [History] Warfarin [Coumadin] 5 mg PO ASDIRECTED 01/17/15 [History] metFORMIN [Glucophage] 500 mg PO BID 11/01/14 [History] A/C/E/Zinc Ox/Cupric Ox/Lutein [Macuvite Eye Care Tablet] 1 tab PO DAILY [History] Ascorbic Acid [Vitamin C] 1,000 mg PO DAILY 04/06/18 [History] Calcium Carbonate/Vitamin D3 [Calcium 1,000 + D3 Caplet] 1 each PO DAILY [History] Diltiazem HCl [Cardizem] 30 mg PO TID 04/06/18 [History] Ibuprofen 200 mg PO Q4H PRN 05/03/18 [History] Lisinopril 20 mg PO DAILY 05/03/18 [History] Multivitamin/Iron/Folic Acid [Centrum Adults Tablet] 1 each PO DAILY 05/03/18 [ History] Polyethylene Glycol 3350 [MiraLAX] 17 gm PO DAILY PRN 05/03/18 [History] Warfarin [Coumadin] 7.5 mg PO ASDIRECTED 05/03/18 [History] oxyCODONE 5 mg PO Q4H PRN 05/03/18 [History] Past Medical History HEENT History: Reports: Impaired Vision Other HEENT History: wears eyeglasses Cardiovascular History: Reports: Afib, High Cholesterol, Hypertension Respiratory History: Reports: COPD Other Respiratory History: patient denies COPD, patient stating asthma Gastrointestinal History: Reports: GERD Genitourinary History: Reports: Urinary Incontinence [employer] 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 OB/BYN History: 2 kids Musculoskeletal History: Reports: Arthritis, Back Pain, Chronic, Fracture Neurological History: Reports: Migraines Psychiatric History: Reports: Anxiety, Depression Endocrine/Metabolic History: Reports: Diabetes, Type II, Obesity/BMI 30+ Hematologic History: Reports: Other (See Below) Other Hematologic History: blood thinners, chemo treatments Oncologic (Cancer) History: Reports: Breast - Infectious Disease History Infectious Disease History: Reports: Chicken Pox, Mumps - Past Surgical History HEENT Surgical History: Reports: Cataract Surgery, Tonsillectomy GI Surgical History: Reports: Appendectomy, Cholecystectomy Female Surgical History: Reports: Hysterectomy, Mastectomy, Salpingo- Oophorectomy, Other (See Below) Neurological Surgical History: Reports: Lumbar Spine Musculoskeletal Surgical History: Reports: Knee Replacement Oncologic Surgical History: Reports: Mastectomy Social & Family History - Family History Family Medical History: Noncontributory - Tobacco Use Smoking Status *Q: Never Smoker - Caffeine Use Caffeine Use: Reports: Coffee, Soda Other Caffeine Use: one cup a day of coffee - Recreational Drug Use Recreational Drug Use: No Drug Use in Last 12 Months: No - Living Situation & Occupation Living situation: Reports: , Alone Occupation: Employed H&P Review of Systems - Review of Systems: Review Of Systems: See Below General: Reports: Fever, Malaise, Weakness HEENT: Reports: No Symptoms Pulmonary: Reports: No Symptoms Cardiovascular: Reports: Orthopnea Gastrointestinal: Reports: No Symptoms Genitourinary: Reports: Other (labial discomfort) Musculoskeletal: Reports: No Symptoms Skin: Reports: No Symptoms Psychiatric: Reports: No Symptoms Neurological: Reports: No Symptoms Hematologic/Lymphatic: Reports: No Symptoms Immunologic: Reports: No Symptoms Exam - Exam Exam: See Below - Vital Signs Vital Signs: Last Vital Signs Temp 36.7 C 05/03/18 17:12 Pulse 94 05/03/18 17:12 Resp 20 05/03/18 17:12 BP 143/60 H 05/03/18 17:12 Pulse Ox 99 05/03/18 17:12 Weight: 116.301 kg - Exam Quality Assessment: Supplemental Oxygen, DVT Prophylaxis General: Alert, Oriented, Cooperative HEENT: Conjunctiva Clear, Nares Patent, Normal Nasal Septum, Pupils Equal, Pupils Reactive, PERRLA Neck: Trachea Midline Lungs: Clear to Auscultation, Normal Respiratory Effort Cardiovascular: Regular Rate, Regular Rhythm GI/Abdominal Exam: Normal Bowel Sounds, Soft, Non-Tender, No Organomegaly, No Distention (Female) Exam: Deferred Rectal (Female) Exam: Deferred Back Exam: Normal Inspection Extremities: Normal Inspection, Non-Tender, Slow Capillary Refill Skin: Warm Neurological: Cranial Nerves Intact Neuro Extensive - Mental Status: Alert, Oriented x3, Normal Mood/Affect, Normal Cognition, Memory Intact Neuro Extensive - Motor, Sensory, Reflexes: CN II-XII Intact, Normal Gait Psychiatric: Alert - Patient Data Lab Results Last 24 hrs: Laboratory Results - last 24 hr 05/03/18 05/03/18 05/03/18 Range/Units 12:20 12:20 12:20 WBC 0.41 L* (3.98-10.04) K/mm3 RBC 2.66 L (3.98-5.22) M/mm3 Hgb 7.9 L (11.2-15.7) gm/L Hct 25.2 L (34.1-44.9) % MCV 94.7 (79.4-94.8) fl MCH 29.7 (25.6-32.2) pg MCHC 31.3 L (32.2-35.5) g/dl RDW Std Deviation 63.6 H (36.4-46.3) fL Plt Count 87 L (182-369) K/mm3 MPV 11.1 (9.4-12.3) fl Neutrophils % (Manual) 0 L (40-60) % Band Neutrophils % 0 (0-10) % Lymphocytes % (Manual) 72 H (20-40) % Atypical Lymphs % 0 % Monocytes % (Manual) 12 H (2-10) % Eosinophils % (Manual) 8 H (0.7-5.8) % Basophils % (Manual) 0 L (0.1-1.2) Myelocytes % 4 Blast Cells % 4 Differential Comment See note Platelet Estimate See note Polychromasia 1+ slight Poikilocytosis 1+ slight Anisocytosis 1+ slight Ovalocytes Few RBC Morph Comment Not Reportable PT (9.5-12.1) SECONDS INR Sodium 138 (136-145) mEq/L Potassium 3.5 (3.5-5.1) mEq/L Chloride 102 (98-107) mEq/L Carbon Dioxide 27 (21-32) mEq/L Anion Gap 12.5 (5-15) BUN 11 (7-18) mg/dL Creatinine 0.6 (0.55-1.02) mg/dL Est Cr Clr Drug Dosing 85.18 mL/min Estimated GFR (MDRD) > 60 (>60) mL/min BUN/Creatinine Ratio 18.3 H (14-18) Glucose 122 H (80-115) mg/dL Calcium 8.2 L (8.5-10.1) mg/dL Total Bilirubin 0.6 (0.2-1.0) mg/dL AST 8 L (15-37) U/L ALT 12 L (14-59) U/L Alkaline Phosphatase 72 (46-116) U/L C-Reactive Protein 7.6 H* (<1.0) mg/dL Total Protein 5.9 L (6.4-8.2) g/dl Albumin 2.8 L (3.4-5.0) g/dl Globulin 3.1 gm/dL Albumin/Globulin Ratio 0.9 L (1-2) 05/03/18 Range/Units 12:20 WBC (3.98-10.04) K/mm3 RBC (3.98-5.22) M/mm3 Hgb (11.2-15.7) gm/L Hct (34.1-44.9) % MCV (79.4-94.8) fl MCH (25.6-32.2) pg MCHC (32.2-35.5) g/dl RDW Std Deviation (36.4-46.3) fL Plt Count (182-369) K/mm3 MPV (9.4-12.3) fl Neutrophils % (Manual) (40-60) % Band Neutrophils % (0-10) % Lymphocytes % (Manual) (20-40) % Atypical Lymphs % % Monocytes % (Manual) (2-10) % Eosinophils % (Manual) (0.7-5.8) % Basophils % (Manual) (0.1-1.2) Myelocytes % Blast Cells % Differential Comment Platelet Estimate Polychromasia Poikilocytosis Anisocytosis Ovalocytes RBC Morph Comment PT 23.0 H (9.5-12.1) SECONDS INR 2.14 Sodium (136-145) mEq/L Potassium (3.5-5.1) mEq/L Chloride (98-107) mEq/L Carbon Dioxide (21-32) mEq/L Anion Gap (5-15) BUN (7-18) mg/dL Creatinine (0.55-1.02) mg/dL Est Cr Clr Drug Dosing mL/min Estimated GFR (MDRD) (>60) mL/min BUN/Creatinine Ratio (14-18) Glucose (80-115) mg/dL Calcium (8.5-10.1) mg/dL Total Bilirubin (0.2-1.0) mg/dL AST (15-37) U/L ALT (14-59) U/L Alkaline Phosphatase (46-116) U/L C-Reactive Protein (<1.0) mg/dL Total Protein (6.4-8.2) g/dl Albumin (3.4-5.0) g/dl Globulin gm/dL Albumin/Globulin Ratio (1-2) Result Diagrams: 05/04/18 05:50 05/04/18 05:50 Problem List Initiated/Reviewed/Updated: Yes Orders Last 24hrs: Active Orders 24 hr Category Date Time Status Admission Status [Patient Status] [ADT] Routine ADT 05/03/18 15:15 Active Central Line Assessment [RC] Q2H Care 05/03/18 15:30 Active Implanted Port Access [RC] ASDIRECTED Care 05/03/18 15:30 Active Peripheral IV Care [RC] . DIRECTED Care 05/03/18 13:55 Active Clear Liquid Diet [DIET] Diet 05/03/18 Dinner Active CULTURE ANAEROBIC + SMEAR [RM] Stat Lab 05/03/18 13:15 Received CULTURE BLOOD [BC] Stat Lab 05/03/18 13:54 Ordered LACTIC ACID [CHEM] Routine Lab 05/03/18 19:10 Received Piperacillin/Tazobactam [Zosyn] 4.5 gm Med 05/04/18 00:00 Active Sodium Chloride 0.9% [Normal Saline] 100 ml IV Q8H Sodium Chloride 0.9% [Saline Flush] Med 05/03/18 13:55 Active 10 ml FLUSH ASDIRECTED PRN Peripheral IV Insertion Adult [OM.PC] Stat Oth 05/03/18 13:55 Ordered Resuscitation Status Routine Resus Stat 05/03/18 18:22 Ordered Medication Orders Piperacillin Sod/Tazobactam (Sod 4.5 gm/ Sodium Chloride) 100 mls @ 25 mls/hr IV Q8H KESHA Sodium Chloride (Saline Flush) 10 ml FLUSH ASDIRECTED PRN PRN Reason: Keep Vein Open Assessment/Plan Comment:: Impression: Febrile neutropenia S/P I and D of Labial cyst History of bilateral mastectomy, s/p recent CTX, antineoplastic agent is unknown Chronic A Fib HLD HTN GERD DM type 2 Morbid obesity Anxiety/Depression Plan: IVF ATB, Zosyn/Vanco [place] stimulating factor Home meds Daily labs PT/OT Consult Return to [place] at DC DVT/GI prophylaxis
[2018-05-03] MEDS: Acetaminophen 325 MG Tab PO PRN (20:42)
[2018-05-03] MEDS: LORazepam 1 MG Tab PO SCH (20:44)
[2018-05-03] MEDS: Warfarin 5 MG Tab PO SCH (20:46)
[2018-05-03] MEDS: Simvastatin 20 MG Tab PO SCH (20:46)
[2018-05-03] MEDS: Diltiazem IR 30 MG Tab PO SCH (20:49)
[2018-05-04] MEDS: Piperacillin/Tazobactam 4.5 GM in Sodium Chloride 0.9% 100 ML IV SCH ×3 (04:06→22:04)
[2018-05-04] MEDS: Pantoprazole 40 MG Tab.CR PO SCH (06:13)
[2018-05-04] MEDS ORDERED: Sodium Chloride 0.9% 1,000 ML IV SCH ×2 (07:00→22:10)
[2018-05-04] MEDS: Sodium Chloride 0.9% 250 ML IV SCH ×2 (08:00→12:08)
[2018-05-04] MEDS: Multivitamins,Therapeutic Tab PO SCH (08:26)
[2018-05-04] MEDS: Ascorbic Acid 500 MG Tab PO SCH (08:26)
[2018-05-04] MEDS: Multivitamins with Minerals/Folic Acid/Lutein/Zeaxanth Tab PO SCH (08:26)
[2018-05-04] MEDS: Diltiazem IR 30 MG Tab PO SCH ×3 (08:26→22:02)
[2018-05-04] MEDS: LORazepam 1 MG Tab PO SCH ×2 (08:26→22:02)
[2018-05-04] MEDS ORDERED: Potassium Chloride 20 MEQ Tab.ER PO SCH (09:00)
[2018-05-04] MEDS ORDERED: Furosemide 40 MG/4 ML VIAL IVPUSH SCH (10:30)
[2018-05-04] MEDS: Potassium Chloride 20 MEQ Tab.ER PO SCH ×2 (12:08→22:01)
--- NOTE | 2018-05-04 12:36 | PCM.PN ---
- General Info Date of Service: 05/04/18 Functional Status: Reports: Pain Controlled, Tolerating Diet, Ambulating, Urinating - Review of Systems General: Reports: Weakness (decreased) HEENT: Reports: No Symptoms Pulmonary: Reports: Shortness of Breath (decreased) Cardiovascular: Reports: No Symptoms Gastrointestinal: Reports: No Symptoms Genitourinary: Reports: No Symptoms Musculoskeletal: Reports: No Symptoms Skin: Reports: No Symptoms Neurological: Reports: No Symptoms Psychiatric: Reports: No Symptoms - Patient Data Vitals - Most Recent: Last Vital Signs Temp 36.6 C 05/04/18 11:30 Pulse 74 05/04/18 11:30 Resp 20 05/04/18 11:30 BP 119/76 05/04/18 11:30 Pulse Ox 96 05/04/18 11:30 Weight - Most Recent: 115.53 kg I&O - Last 24 Hours: Intake & Output 05/03/18 05/04/18 05/04/18 22:59 06:59 14:59 Intake Total 560 410 600 Balance 560 410 600 Lab Results Last 24 Hours: Laboratory Results - last 24 hr 05/03/18 05/03/18 05/03/18 Range/Units 12:20 12:20 12:20 WBC (3.98-10.04) K/mm3 RBC (3.98-5.22) M/mm3 Hgb (11.2-15.7) gm/L Hct (34.1-44.9) % MCV (79.4-94.8) fl MCH (25.6-32.2) pg MCHC (32.2-35.5) g/dl RDW Std Deviation (36.4-46.3) fL Plt Count (182-369) K/mm3 MPV (9.4-12.3) fl Neut % (Auto) (34.0-71.1) % Lymph % (Auto) (19.3-51.7) % [place] % (Auto) (4.7-12.5) % Eos % (Auto) (0.7-5.8) Baso % (Auto) (0.1-1.2) % Neut # (Auto) (1.56-6.13) K/mm3 Lymph # (Auto) (1.18-3.74) K/mm3 [place] # (Auto) (0.24-0.36) K/mm3 Eos # (Auto) (0.04-0.36) K/mm3 Baso # (Auto) (0.01-0.08) K/mm3 Neutrophils % (Manual) 0 L (40-60) % Band Neutrophils % 0 (0-10) % Lymphocytes % (Manual) 72 H (20-40) % Atypical Lymphs % 0 % Monocytes % (Manual) 12 H (2-10) % Eosinophils % (Manual) 8 H (0.7-5.8) % Basophils % (Manual) 0 L (0.1-1.2) Myelocytes % 4 Blast Cells % 4 Differential Comment See note Manual Slide Review Platelet Estimate See note Polychromasia 1+ slight Poikilocytosis 1+ slight Anisocytosis 1+ slight Ovalocytes Few RBC Morph Comment Not Reportable PT (9.5-12.1) SECONDS INR Sodium 138 (136-145) mEq/L Potassium 3.5 (3.5-5.1) mEq/L Chloride 102 (98-107) mEq/L Carbon Dioxide 27 (21-32) mEq/L Anion Gap 12.5 (5-15) BUN 11 (7-18) mg/dL Creatinine 0.6 (0.55-1.02) mg/dL Est Cr Clr Drug Dosing 85.18 mL/min Estimated GFR (MDRD) > 60 (>60) mL/min BUN/Creatinine Ratio 18.3 H (14-18) Glucose 122 H (80-115) mg/dL POC Glucose (80-115) mg/dL Lactic Acid (0.4-2.0) mmol/L Calcium 8.2 L (8.5-10.1) mg/dL Total Bilirubin 0.6 (0.2-1.0) mg/dL AST 8 L (15-37) U/L ALT 12 L (14-59) U/L Alkaline Phosphatase 72 (46-116) U/L C-Reactive Protein 7.6 H* (<1.0) mg/dL Total Protein 5.9 L (6.4-8.2) g/dl Albumin 2.8 L (3.4-5.0) g/dl Globulin 3.1 gm/dL Albumin/Globulin Ratio 0.9 L (1-2) MRSA (PCR) Blood Type Gel Antibody Screen Crossmatch 05/03/18 05/03/18 05/04/18 Range/Units 12:20 19:10 01:18 WBC (3.98-10.04) K/mm3 RBC (3.98-5.22) M/mm3 Hgb (11.2-15.7) gm/L Hct (34.1-44.9) % MCV (79.4-94.8) fl MCH (25.6-32.2) pg MCHC (32.2-35.5) g/dl RDW Std Deviation (36.4-46.3) fL Plt Count (182-369) K/mm3 MPV (9.4-12.3) fl Neut % (Auto) (34.0-71.1) % Lymph % (Auto) (19.3-51.7) % [place] % (Auto) (4.7-12.5) % Eos % (Auto) (0.7-5.8) Baso % (Auto) (0.1-1.2) % Neut # (Auto) (1.56-6.13) K/mm3 Lymph # (Auto) (1.18-3.74) K/mm3 [place] # (Auto) (0.24-0.36) K/mm3 Eos # (Auto) (0.04-0.36) K/mm3 Baso # (Auto) (0.01-0.08) K/mm3 Neutrophils % (Manual) (40-60) % Band Neutrophils % (0-10) % Lymphocytes % (Manual) (20-40) % Atypical Lymphs % % Monocytes % (Manual) (2-10) % Eosinophils % (Manual) (0.7-5.8) % Basophils % (Manual) (0.1-1.2) Myelocytes % Blast Cells % Differential Comment Manual Slide Review Platelet Estimate Polychromasia Poikilocytosis Anisocytosis Ovalocytes RBC Morph Comment PT 23.0 H (9.5-12.1) SECONDS INR 2.14 Sodium (136-145) mEq/L Potassium (3.5-5.1) mEq/L Chloride (98-107) mEq/L Carbon Dioxide (21-32) mEq/L Anion Gap (5-15) BUN (7-18) mg/dL Creatinine (0.55-1.02) mg/dL Est Cr Clr Drug Dosing mL/min Estimated GFR (MDRD) (>60) mL/min BUN/Creatinine Ratio (14-18) Glucose (80-115) mg/dL POC Glucose (80-115) mg/dL Lactic Acid 1.3 (0.4-2.0) mmol/L Calcium (8.5-10.1) mg/dL Total Bilirubin (0.2-1.0) mg/dL AST (15-37) U/L ALT (14-59) U/L Alkaline Phosphatase (46-116) U/L C-Reactive Protein (<1.0) mg/dL Total Protein (6.4-8.2) g/dl Albumin (3.4-5.0) g/dl Globulin gm/dL Albumin/Globulin Ratio (1-2) MRSA (PCR) Negative Blood Type Gel Antibody Screen Crossmatch 05/04/18 05/04/18 05/04/18 Range/Units 05:50 05:50 05:50 WBC 0.40 L* (3.98-10.04) K/mm3 RBC 2.44 L (3.98-5.22) M/mm3 Hgb 7.4 L (11.2-15.7) gm/L Hct 23.5 L (34.1-44.9) % MCV 96.3 H (79.4-94.8) fl MCH 30.3 (25.6-32.2) pg MCHC 31.5 L (32.2-35.5) g/dl RDW Std Deviation 66.2 H (36.4-46.3) fL Plt Count 87 L (182-369) K/mm3 MPV 10.9 (9.4-12.3) fl Neut % (Auto) 0 L (34.0-71.1) % Lymph % (Auto) 37.5 (19.3-51.7) % [place] % (Auto) 45.0 H (4.7-12.5) % Eos % (Auto) 12.5 H (0.7-5.8) Baso % (Auto) 5.0 H (0.1-1.2) % Neut # (Auto) 0.00 L (1.56-6.13) K/mm3 Lymph # (Auto) 0.15 L (1.18-3.74) K/mm3 [place] # (Auto) 0.18 L (0.24-0.36) K/mm3 Eos # (Auto) 0.05 (0.04-0.36) K/mm3 Baso # (Auto) 0.02 (0.01-0.08) K/mm3 Neutrophils % (Manual) (40-60) % Band Neutrophils % (0-10) % Lymphocytes % (Manual) (20-40) % Atypical Lymphs % % Monocytes % (Manual) (2-10) % Eosinophils % (Manual) (0.7-5.8) % Basophils % (Manual) (0.1-1.2) Myelocytes % Blast Cells % Differential Comment Manual Slide Review Abnormal smear Platelet Estimate Polychromasia Poikilocytosis Anisocytosis Ovalocytes RBC Morph Comment PT 23.4 H (9.5-12.1) SECONDS INR 2.18 Sodium 139 (136-145) mEq/L Potassium 3.3 L (3.5-5.1) mEq/L Chloride 103 (98-107) mEq/L Carbon Dioxide 28 (21-32) mEq/L Anion Gap 11.3 (5-15) BUN 10 (7-18) mg/dL Creatinine 0.6 (0.55-1.02) mg/dL Est Cr Clr Drug Dosing 85.18 mL/min Estimated GFR (MDRD) > 60 (>60) mL/min BUN/Creatinine Ratio 16.7 (14-18) Glucose 125 H (80-115) mg/dL POC Glucose (80-115) mg/dL Lactic Acid (0.4-2.0) mmol/L Calcium 8.1 L (8.5-10.1) mg/dL Total Bilirubin (0.2-1.0) mg/dL AST (15-37) U/L ALT (14-59) U/L Alkaline Phosphatase (46-116) U/L C-Reactive Protein 12.0 H* (<1.0) mg/dL Total Protein (6.4-8.2) g/dl Albumin (3.4-5.0) g/dl Globulin gm/dL Albumin/Globulin Ratio (1-2) MRSA (PCR) Blood Type Gel Antibody Screen Crossmatch 05/04/18 05/04/18 05/04/18 Range/Units 05:50 05:50 08:19 WBC (3.98-10.04) K/mm3 RBC (3.98-5.22) M/mm3 Hgb (11.2-15.7) gm/L Hct (34.1-44.9) % MCV (79.4-94.8) fl MCH (25.6-32.2) pg MCHC (32.2-35.5) g/dl RDW Std Deviation (36.4-46.3) fL Plt Count (182-369) K/mm3 MPV (9.4-12.3) fl Neut % (Auto) (34.0-71.1) % Lymph % (Auto) (19.3-51.7) % [place] % (Auto) (4.7-12.5) % Eos % (Auto) (0.7-5.8) Baso % (Auto) (0.1-1.2) % Neut # (Auto) (1.56-6.13) K/mm3 Lymph # (Auto) (1.18-3.74) K/mm3 [place] # (Auto) (0.24-0.36) K/mm3 Eos # (Auto) (0.04-0.36) K/mm3 Baso # (Auto) (0.01-0.08) K/mm3 Neutrophils % (Manual) (40-60) % Band Neutrophils % (0-10) % Lymphocytes % (Manual) (20-40) % Atypical Lymphs % % Monocytes % (Manual) (2-10) % Eosinophils % (Manual) (0.7-5.8) % Basophils % (Manual) (0.1-1.2) Myelocytes % Blast Cells % Differential Comment Manual Slide Review Platelet Estimate Polychromasia Poikilocytosis Anisocytosis Ovalocytes RBC Morph Comment PT (9.5-12.1) SECONDS INR Sodium (136-145) mEq/L Potassium (3.5-5.1) mEq/L Chloride (98-107) mEq/L Carbon Dioxide (21-32) mEq/L Anion Gap (5-15) BUN (7-18) mg/dL Creatinine (0.55-1.02) mg/dL Est Cr Clr Drug Dosing mL/min Estimated GFR (MDRD) (>60) mL/min BUN/Creatinine Ratio (14-18) Glucose (80-115) mg/dL POC Glucose 120 H (80-115) mg/dL Lactic Acid 0.6 (0.4-2.0) mmol/L Calcium (8.5-10.1) mg/dL Total Bilirubin (0.2-1.0) mg/dL AST (15-37) U/L ALT (14-59) U/L Alkaline Phosphatase (46-116) U/L C-Reactive Protein (<1.0) mg/dL Total Protein (6.4-8.2) g/dl Albumin (3.4-5.0) g/dl Globulin gm/dL Albumin/Globulin Ratio (1-2) MRSA (PCR) Blood Type A POSITIVE Gel Antibody Screen Negative Crossmatch See Detail Jim Results Last 24 Hours: Microbiology 05/03/18 13:15 Anaerobic Culture - Preliminary Groin, Unspecified Gram Negative Rods Med Orders - Current: Current Medications Acetaminophen (Tylenol) 650 mg PO Q4H PRN PRN Reason: Pain/Fever Last Admin: 05/03/18 20:42 Dose: 650 mg Ascorbic Acid (Vitamin C) 1,000 mg PO DAILY [facility] Last Admin: 05/04/18 08:26 Dose: 1,000 mg Diltiazem HCl (Cardizem) 30 mg PO TID [facility] Last Admin: 05/04/18 08:26 Dose: 30 mg Furosemide (Lasix) 40 mg IVPUSH ASDIRECTED [facility] Stop: 05/04/18 21:00 Piperacillin Sod/Tazobactam (Sod 4.5 gm/ Sodium Chloride) 100 mls @ 25 mls/hr IV Q8H [facility] Last Admin: 05/04/18 04:06 Dose: 25 mls/hr Sodium Chloride (Normal Saline) 250 mls @ 50 mls/hr IV ASDIRECTED [facility] Stop: 05/04/18 13:00 Last Admin: 05/04/18 12:08 Dose: 50 mls/hr Vancomycin HCl 1 gm/Vancomycin HCl 500 mg/ Sodium Chloride 500 mls @ 333.333 mls/hr IV Q12H [facility] Lorazepam (Ativan) 1 mg PO BID [facility] Last Admin: 05/04/18 08:26 Dose: 1 mg Multivitamins (Thera) 1 each PO DAILY [facility] Last Admin: 05/04/18 08:26 Dose: 1 each Oxycodone HCl (Oxycodone) 5 mg PO Q4H PRN PRN Reason: Pain Pantoprazole Sodium (Protonix) 20 mg PO DAILY@0700 [facility] Last Admin: 05/04/18 06:13 Dose: 20 mg Polyethylene Glycol (Miralax) 17 gm PO DAILY PRN PRN Reason: Constipation Potassium Chloride (Klor-Con M20) 40 meq PO BID [facility] Stop: 05/05/18 21:01 Last Admin: 05/04/18 12:08 Dose: 40 meq Potassium Chloride (Klor-Con M20) 20 meq PO DAILY [facility] Simvastatin (Zocor) 20 mg PO BEDTIME [facility] Last Admin: 05/03/18 20:46 Dose: 20 mg Sodium Chloride (Saline Flush) 10 ml FLUSH ASDIRECTED PRN PRN Reason: Keep Vein Open Vit A/Vit C/Vit E/Selen/Cu/Zn/Lutei (Icaps Mv) 1 tab PO DAILY [facility] Last Admin: 05/04/18 08:26 Dose: 1 tab Warfarin Sodium (Coumadin) 5 mg PO SuTuWeThSa@1800 [facility] Last Admin: 05/03/18 20:46 Dose: 5 mg Warfarin Sodium (Coumadin) 7.5 mg PO MoFr@1800 [facility] Discontinued Medications Vancomycin HCl 2 gm/ Sodium (Chloride) 250 mls @ 250 mls/hr IV ONETIME ONE Stop: 05/03/18 15:29 Last Admin: 05/03/18 18:50 Dose: Not Given Vancomycin HCl 2 gm/ Sodium (Chloride) 500 mls @ 500 mls/hr IV ONETIME ONE Stop: 05/03/18 15:29 Last Admin: 05/03/18 17:47 Dose: 500 mls/hr Piperacillin Sod/Tazobactam (Sod 4.5 gm/ Sodium Chloride) 100 mls @ 200 mls/hr IV ONETIME ONE Stop: 05/03/18 16:29 Last Admin: 05/03/18 20:34 Dose: Not Given Piperacillin Sod/Tazobactam (Sod 4.5 gm/ Sodium Chloride) 100 mls @ 200 mls/hr IV ONETIME ONE Stop: 05/03/18 20:59 Last Admin: 05/03/18 20:35 Dose: 200 mls/hr Sodium Chloride (Normal Saline) 1,000 mls @ 50 mls/hr IV ASDIRECTED [facility] Lidocaine HCl (Xylocaine 1%) 50 ml INJECT ONETIME ONE Stop: 05/03/18 12:50 Last Admin: 05/03/18 13:21 Dose: 50 ml Potassium Chloride (Klor-Con M20) 20 meq PO DAILY [facility] Last Admin: 05/04/18 08:26 Dose: 20 meq Tbo-Filgrastim (Granix) 480 mcg SUBCUT ONETIME ONE Stop: 05/04/18 10:01 Last Admin: 05/04/18 12:09 Dose: 480 mcg - Exam Quality Assessment: Supplemental Oxygen, DVT Prophylaxis General: Alert, Oriented, Cooperative, No Acute Distress HEENT: Pupils Equal, Pupils Reactive, EOMI Neck: Trachea Midline, No JVD Lungs: Normal Respiratory Effort Cardiovascular: Regular Rate, Irregular Rhythm GI/Abdominal Exam: Normal Bowel Sounds, Soft, Non-Tender, No Organomegaly, No Distention (Female) Exam: Deferred Back Exam: Normal Inspection Extremities: Normal Inspection, Normal Capillary Refill Skin: Warm Neurological: No New Focal Deficit, Normal Gait, Normal Speech, Cranial Nerves Intact Psy/Mental Status: Alert, Normal Affect, Normal Mood - Problem List Review Problem List Initiated/Reviewed/Updated: Yes - My Orders Last 24 Hours: My Active Orders 05/03/18 18:22 Resuscitation Status Routine 05/03/18 19:37 Acetaminophen [Tylenol] 650 mg PO Q4H PRN Polyethylene Glycol 3350 [MiraLAX] 17 gm PO DAILY PRN oxyCODONE 5 mg PO Q4H PRN 05/03/18 19:45 Warfarin [Coumadin] 5 mg PO SuTuWeThSa@1800 05/03/18 21:00 Diltiazem IR [Cardizem] 30 mg PO TID LORazepam [Ativan] 1 mg PO BID Simvastatin [Zocor] 20 mg PO BEDTIME 05/04/18 01:18 METH-RESIST S.AUR,MRSA BY PCR [MOLEC] Routine 05/04/18 04:30 Piperacillin/Tazobactam [Zosyn] 4.5 gm Sodium Chloride 0.9% [Normal Saline] 100 ml IV Q8H 05/04/18 05:50 PACKED CELLS [RED BLOOD CELLS LP] [BBK] Routine TYPE AND SCREEN [BBK] Routine 05/04/18 06:42 Transfuse PRBC [Transfuse Red Blood Cells] [COMM] Routine 05/04/18 07:00 Pantoprazole [ProTONIX] 20 mg PO DAILY@0700 05/04/18 07:15 Sodium Chloride 0.9% [Normal Saline] 250 ml IV ASDIRECTED 05/04/18 09:00 Ascorbic Acid [Vitamin C] 1,000 mg PO DAILY Multivitamins,Therapeutic [Thera] 1 each PO DAILY Multivitamins/Min/FA/Lut/Zeax [ICaps MV] 1 tab PO DAILY 05/04/18 10:00 Vancomycin 1 gm Vancomycin 500 mg Sodium Chloride 0.9% [Normal Saline] 500 ml IV Q12H 05/04/18 10:30 Furosemide [Lasix] 40 mg IVPUSH ASDIRECTED 05/04/18 11:00 Potassium Chloride [Klor-Con M20] 40 meq PO BID 05/04/18 18:00 Warfarin [Coumadin] 7.5 mg PO MoFr@1800 05/04/18 Breakfast Full Liquid Diet [DIET] 05/04/18 Dinner Soft Diet [DIET] 05/05/18 05:00 BMP [BASIC METABOLIC PANEL,BMP] [CHEM] DAILY CBC WITH AUTO DIFF [HEME] DAILY CRP [C-REACTIVE PROTEIN] [CHEM] DAILY INR,PT,PROTHROMBIN TIME [COAG] DAILY LACTIC ACID [CHEM] DAILY 05/05/18 09:30 VANCOMYCIN TROUGH [CHEM] Timed 05/06/18 05:00 BMP [BASIC METABOLIC PANEL,BMP] [CHEM] DAILY CBC WITH AUTO DIFF [HEME] DAILY CRP [C-REACTIVE PROTEIN] [CHEM] DAILY INR,PT,PROTHROMBIN TIME [COAG] DAILY LACTIC ACID [CHEM] DAILY 05/06/18 09:00 Potassium Chloride [Klor-Con M20] 20 meq PO DAILY 05/07/18 05:00 BMP [BASIC METABOLIC PANEL,BMP] [CHEM] DAILY CBC WITH AUTO DIFF [HEME] DAILY CRP [C-REACTIVE PROTEIN] [CHEM] DAILY INR,PT,PROTHROMBIN TIME [COAG] DAILY LACTIC ACID [CHEM] DAILY - Plan Plan:: Impression: Febrile neutropenia S/P I and D of Labial cyst Hgb decreased~7.4-->will T/C for 4 units, transfuse 2 units with Lasix 40 mg IVP. History of bilateral mastectomy, s/p recent CTX, antineoplastic agent is unknown Chronic A Fib HLD HTN GERD DM type 2 Morbid obesity Anxiety/Depression Plan: IVF ATB, Zosyn/Vanco [place] stimulating factor Home meds Daily labs PT/OT Consult Return to [place] at DC DVT/GI prophylaxis
[2018-05-04] MEDS ORDERED: 50% Dextrose in Water 50 ML Syringe IVPUSH PRN (14:56)
[2018-05-04] MEDS: Vancomycin 1 GM, Vancomycin 500 MG in Sodium Chloride 0.9% 500 ML IV SCH ×2 (15:42→22:04)
[2018-05-04] MEDS: metFORMIN 500 MG Tab PO SCH (17:16)
[2018-05-04] MEDS ORDERED: Warfarin 7.5 MG Tab PO SCH (18:00)
[2018-05-04] MEDS: Simvastatin 20 MG Tab PO SCH (22:02)
[2018-05-04] MEDS: Saccharomyces Boulardii (Probiotic) 250 MG Cap PO SCH (22:03)
[2018-05-04] MEDS: Insulin Aspart 100 Units/ML 3 ML Pen SUBCUT SCH (22:58)
[2018-05-04] MEDS: Acetaminophen 325 MG Tab PO PRN (23:38)
[2018-05-05] MEDS: Piperacillin/Tazobactam 4.5 GM in Sodium Chloride 0.9% 100 ML IV SCH ×3 (04:05→21:21)
[2018-05-05] MEDS: Pantoprazole 40 MG Tab.CR PO SCH (06:15)
[2018-05-05] MEDS: metFORMIN 500 MG Tab PO SCH ×2 (09:32→16:42)
[2018-05-05] MEDS: Saccharomyces Boulardii (Probiotic) 250 MG Cap PO SCH ×2 (09:32→21:21)
[2018-05-05] MEDS: Insulin Aspart 100 Units/ML 3 ML Pen SUBCUT SCH ×2 (09:32→21:24)
[2018-05-05] MEDS: Ascorbic Acid 500 MG Tab PO SCH (09:33)
[2018-05-05] MEDS: Multivitamins,Therapeutic Tab PO SCH (09:33)
[2018-05-05] MEDS: LORazepam 1 MG Tab PO SCH ×2 (09:33→21:21)
[2018-05-05] MEDS: Multivitamins with Minerals/Folic Acid/Lutein/Zeaxanth Tab PO SCH (09:33)
[2018-05-05] MEDS: Diltiazem IR 30 MG Tab PO SCH ×3 (09:33→21:22)
[2018-05-05] MEDS: Vancomycin 1 GM, Vancomycin 500 MG in Sodium Chloride 0.9% 500 ML IV SCH ×3 (09:37→21:20)
--- NOTE | 2018-05-05 10:02 | PCM.PN ---
- General Info Date of Service: 05/05/18 Functional Status: Reports: Pain Controlled, Tolerating Diet, Ambulating, Urinating - Review of Systems General: Reports: Weakness (decreased) HEENT: Reports: No Symptoms Pulmonary: Reports: No Symptoms Cardiovascular: Reports: No Symptoms Gastrointestinal: Reports: No Symptoms Genitourinary: Reports: No Symptoms Musculoskeletal: Reports: No Symptoms Skin: Reports: No Symptoms Neurological: Reports: No Symptoms Psychiatric: Reports: No Symptoms - Patient Data Vitals - Most Recent: Last Vital Signs Temp 36.4 C 05/05/18 07:42 Pulse 81 05/05/18 07:42 Resp 16 05/05/18 07:42 BP 112/51 L 05/05/18 07:42 Pulse Ox 98 05/05/18 07:42 Weight - Most Recent: 117.072 kg I&O - Last 24 Hours: Intake & Output 05/04/18 05/05/18 05/05/18 22:59 06:59 14:59 Intake Total 1780 1400 Output Total 1200 Balance 580 1400 Lab Results Last 24 Hours: Laboratory Results - last 24 hr 05/04/18 05/04/18 05/05/18 Range/Units 05:50 22:57 06:18 WBC (3.98-10.04) K/mm3 RBC (3.98-5.22) M/mm3 Hgb (11.2-15.7) gm/L Hct (34.1-44.9) % MCV (79.4-94.8) fl MCH (25.6-32.2) pg MCHC (32.2-35.5) g/dl RDW Std Deviation (36.4-46.3) fL Plt Count (182-369) K/mm3 MPV (9.4-12.3) fl Neut % (Auto) (34.0-71.1) % Lymph % (Auto) (19.3-51.7) % [place] % (Auto) (4.7-12.5) % Eos % (Auto) (0.7-5.8) Baso % (Auto) (0.1-1.2) % Neut # (Auto) (1.56-6.13) K/mm3 Lymph # (Auto) (1.18-3.74) K/mm3 [place] # (Auto) (0.24-0.36) K/mm3 Eos # (Auto) (0.04-0.36) K/mm3 Baso # (Auto) (0.01-0.08) K/mm3 Manual Slide Review PT (9.5-12.1) SECONDS INR Sodium (136-145) mEq/L Potassium (3.5-5.1) mEq/L Chloride (98-107) mEq/L Carbon Dioxide (21-32) mEq/L Anion Gap (5-15) BUN (7-18) mg/dL Creatinine (0.55-1.02) mg/dL Est Cr Clr Drug Dosing mL/min Estimated GFR (MDRD) (>60) mL/min BUN/Creatinine Ratio (14-18) Glucose (80-115) mg/dL POC Glucose 122 H 116 H (80-115) mg/dL Lactic Acid (0.4-2.0) mmol/L Calcium (8.5-10.1) mg/dL C-Reactive Protein (<1.0) mg/dL Blood Type A POSITIVE Gel Antibody Screen Negative Crossmatch See Detail 05/05/18 05/05/18 05/05/18 Range/Units 07:00 07:00 07:00 WBC 0.95 L* (3.98-10.04) K/mm3 RBC 3.09 L (3.98-5.22) M/mm3 Hgb 9.1 L (11.2-15.7) gm/L Hct 28.4 L (34.1-44.9) % MCV 91.9 (79.4-94.8) fl MCH 29.4 (25.6-32.2) pg MCHC 32.0 L (32.2-35.5) g/dl RDW Std Deviation 67.1 H (36.4-46.3) fL Plt Count 108 L (182-369) K/mm3 MPV 11.6 (9.4-12.3) fl Neut % (Auto) 8.3 L (34.0-71.1) % Lymph % (Auto) 25.3 (19.3-51.7) % [place] % (Auto) 29.5 H (4.7-12.5) % Eos % (Auto) 33.7 H (0.7-5.8) Baso % (Auto) 2.1 H (0.1-1.2) % Neut # (Auto) 0.08 L (1.56-6.13) K/mm3 Lymph # (Auto) 0.24 L (1.18-3.74) K/mm3 [place] # (Auto) 0.28 (0.24-0.36) K/mm3 Eos # (Auto) 0.32 (0.04-0.36) K/mm3 Baso # (Auto) 0.02 (0.01-0.08) K/mm3 Manual Slide Review Abnormal smear PT 26.2 H (9.5-12.1) SECONDS INR 2.45 Sodium 141 (136-145) mEq/L Potassium 4.5 (3.5-5.1) mEq/L Chloride 104 (98-107) mEq/L Carbon Dioxide 26 (21-32) mEq/L Anion Gap 15.5 H (5-15) BUN 8 (7-18) mg/dL Creatinine 0.7 (0.55-1.02) mg/dL Est Cr Clr Drug Dosing 73.41 mL/min Estimated GFR (MDRD) > 60 (>60) mL/min BUN/Creatinine Ratio 11.4 L (14-18) Glucose 112 (80-115) mg/dL POC Glucose (80-115) mg/dL Lactic Acid (0.4-2.0) mmol/L Calcium 8.0 L (8.5-10.1) mg/dL C-Reactive Protein 7.7 H* (<1.0) mg/dL Blood Type Gel Antibody Screen Crossmatch 05/05/18 Range/Units 07:00 WBC (3.98-10.04) K/mm3 RBC (3.98-5.22) M/mm3 Hgb (11.2-15.7) gm/L Hct (34.1-44.9) % MCV (79.4-94.8) fl MCH (25.6-32.2) pg MCHC (32.2-35.5) g/dl RDW Std Deviation (36.4-46.3) fL Plt Count (182-369) K/mm3 MPV (9.4-12.3) fl Neut % (Auto) (34.0-71.1) % Lymph % (Auto) (19.3-51.7) % [place] % (Auto) (4.7-12.5) % Eos % (Auto) (0.7-5.8) Baso % (Auto) (0.1-1.2) % Neut # (Auto) (1.56-6.13) K/mm3 Lymph # (Auto) (1.18-3.74) K/mm3 [place] # (Auto) (0.24-0.36) K/mm3 Eos # (Auto) (0.04-0.36) K/mm3 Baso # (Auto) (0.01-0.08) K/mm3 Manual Slide Review PT (9.5-12.1) SECONDS INR Sodium (136-145) mEq/L Potassium (3.5-5.1) mEq/L Chloride (98-107) mEq/L Carbon Dioxide (21-32) mEq/L Anion Gap (5-15) BUN (7-18) mg/dL Creatinine (0.55-1.02) mg/dL Est Cr Clr Drug Dosing mL/min Estimated GFR (MDRD) (>60) mL/min BUN/Creatinine Ratio (14-18) Glucose (80-115) mg/dL POC Glucose (80-115) mg/dL Lactic Acid 2.5 H (0.4-2.0) mmol/L Calcium (8.5-10.1) mg/dL C-Reactive Protein (<1.0) mg/dL Blood Type Gel Antibody Screen Crossmatch Jim Results Last 24 Hours: Microbiology 05/03/18 13:15 Gram Stain - Final Groin, Unspecified Anaerobic Culture - Preliminary Pseudomonas Aeruginosa 05/03/18 16:30 Aerobic Blood Culture - Preliminary Blood NO GROWTH AFTER 1 DAY Anaerobic Blood Culture - Preliminary NO GROWTH AFTER 1 DAY Med Orders - Current: Current Medications Acetaminophen (Tylenol) 650 mg PO Q4H PRN PRN Reason: Pain/Fever Last Admin: 05/04/18 23:38 Dose: 650 mg Ascorbic Acid (Vitamin C) 1,000 mg PO DAILY [facility] Last Admin: 05/05/18 09:33 Dose: 1,000 mg Dextrose/Water (Dextrose 50% In Water) 50 ml IVPUSH ASDIRECTED PRN PRN Reason: Blood Glucose Diltiazem HCl (Cardizem) 30 mg PO TID [facility] Last Admin: 05/05/18 09:33 Dose: 30 mg Piperacillin Sod/Tazobactam (Sod 4.5 gm/ Sodium Chloride) 100 mls @ 25 mls/hr IV Q8H [facility] Last Admin: 05/05/18 04:05 Dose: 25 mls/hr Vancomycin HCl 1 gm/Vancomycin HCl 500 mg/ Sodium Chloride 500 mls @ 333.333 mls/hr IV Q12H [facility] Last Infusion: 05/04/18 23:35 Dose: Infused Sodium Chloride (Normal Saline) 1,000 mls @ 50 mls/hr IV ASDIRECTED [facility] Last Admin: 05/04/18 22:14 Dose: 50 mls/hr Insulin Aspart (Novolog) 0 unit SUBCUT BID@0700,2100 [facility]; Protocol Last Admin: 05/05/18 09:32 Dose: Not Given Lorazepam (Ativan) 1 mg PO BID [facility] Last Admin: 05/05/18 09:33 Dose: 1 mg Metformin HCl (Glucophage) 500 mg PO BIDMEALS [facility] Last Admin: 05/05/18 09:32 Dose: 500 mg Multivitamins (Thera) 1 each PO DAILY [facility] Last Admin: 05/05/18 09:33 Dose: 1 each Oxycodone HCl (Oxycodone) 5 mg PO Q4H PRN PRN Reason: Pain Pantoprazole Sodium (Protonix) 20 mg PO DAILY@0700 [facility] Last Admin: 05/05/18 06:15 Dose: 20 mg Polyethylene Glycol (Miralax) 17 gm PO DAILY PRN PRN Reason: Constipation Potassium Chloride (Klor-Con M20) 40 meq PO BID [facility] Stop: 05/05/18 21:01 Last Admin: 05/04/18 22:01 Dose: 40 meq Potassium Chloride (Klor-Con M20) 20 meq PO DAILY [facility] Saccharomyces Boulardii (Florastor) 250 mg PO BID [facility] Last Admin: 05/05/18 09:32 Dose: 250 mg Simvastatin (Zocor) 20 mg PO BEDTIME [facility] Last Admin: 05/04/18 22:02 Dose: 20 mg Sodium Chloride (Saline Flush) 10 ml FLUSH ASDIRECTED PRN PRN Reason: Keep Vein Open Vit A/Vit C/Vit E/Selen/Cu/Zn/Lutei (Icaps Mv) 1 tab PO DAILY [facility] Last Admin: 05/05/18 09:33 Dose: 1 tab Warfarin Sodium (Coumadin) 5 mg PO SuTuWeThSa@1800 [facility] Last Admin: 05/03/18 20:46 Dose: 5 mg Warfarin Sodium (Coumadin) 7.5 mg PO MoFr@1800 [facility] Last Admin: 05/04/18 17:16 Dose: 7.5 mg Discontinued Medications Furosemide (Lasix) 40 mg IVPUSH ASDIRECTED [facility] Stop: 05/04/18 21:00 Last Admin: 05/04/18 12:00 Dose: 40 mg Vancomycin HCl 2 gm/ Sodium (Chloride) 250 mls @ 250 mls/hr IV ONETIME ONE Stop: 05/03/18 15:29 Last Admin: 05/03/18 18:50 Dose: Not Given Vancomycin HCl 2 gm/ Sodium (Chloride) 500 mls @ 500 mls/hr IV ONETIME ONE Stop: 05/03/18 15:29 Last Admin: 05/03/18 17:47 Dose: 500 mls/hr Piperacillin Sod/Tazobactam (Sod 4.5 gm/ Sodium Chloride) 100 mls @ 200 mls/hr IV ONETIME ONE Stop: 05/03/18 16:29 Last Admin: 05/03/18 20:34 Dose: Not Given Piperacillin Sod/Tazobactam (Sod 4.5 gm/ Sodium Chloride) 100 mls @ 200 mls/hr IV ONETIME ONE Stop: 05/03/18 20:59 Last Admin: 05/03/18 20:35 Dose: 200 mls/hr Sodium Chloride (Normal Saline) 1,000 mls @ 50 mls/hr IV ASDIRECTED [facility] Sodium Chloride (Normal Saline) 250 mls @ 50 mls/hr IV ASDIRECTED [facility] Stop: 05/04/18 13:00 Last Admin: 05/04/18 12:08 Dose: 50 mls/hr Lidocaine HCl (Xylocaine 1%) 50 ml INJECT ONETIME ONE Stop: 05/03/18 12:50 Last Admin: 05/03/18 13:21 Dose: 50 ml Potassium Chloride (Klor-Con M20) 20 meq PO DAILY [facility] Last Admin: 05/04/18 08:26 Dose: 20 meq Tbo-Filgrastim (Granix) 480 mcg SUBCUT ONETIME ONE Stop: 05/04/18 10:01 Last Admin: 05/04/18 12:09 Dose: 480 mcg - Exam Quality Assessment: Supplemental Oxygen, DVT Prophylaxis General: Alert, Oriented, Cooperative, No Acute Distress HEENT: Pupils Equal, Pupils Reactive, EOMI Neck: Trachea Midline, No JVD Lungs: Normal Respiratory Effort, Decreased Breath Sounds Cardiovascular: Regular Rate GI/Abdominal Exam: Normal Bowel Sounds, Soft, Non-Tender, No Organomegaly, No Distention (Female) Exam: Deferred Back Exam: Normal Inspection Extremities: Normal Inspection, Normal Capillary Refill, Pedal Edema Skin: Warm Neurological: No New Focal Deficit, Normal Speech Psy/Mental Status: Alert, Normal Affect, Normal Mood - Problem List Review Problem List Initiated/Reviewed/Updated: Yes - My Orders Last 24 Hours: My Active Orders 05/04/18 10:00 Vancomycin 1 gm Vancomycin 500 mg Sodium Chloride 0.9% [Normal Saline] 500 ml IV Q12H 05/04/18 11:00 Potassium Chloride [Klor-Con M20] 40 meq PO BID 05/04/18 12:40 Consult to Occupational Therapy [OT Evaluation and Treatment] [CONS] Routine PT Evaluation and Treatment [CONS] Routine 05/04/18 14:49 Up ad Nancy [RC] ASDIRECTED 05/04/18 14:50 C DIFFICILE BY PCR W/NAP1 [MOLEC] Routine 05/04/18 14:54 Blood Glucose Check, Bedside [RC] 05/04/18 14:56 Dextrose 50% in Water 50 ml IVPUSH ASDIRECTED PRN 05/04/18 17:00 metFORMIN [Glucophage] 500 mg PO BIDMEALS 05/04/18 18:00 Warfarin [Coumadin] 7.5 mg PO MoFr@1800 05/04/18 21:00 Insulin Aspart [NovoLOG] See Protocol SUBCUT BID@0700,2100 Saccharomyces Boulardii [Florastor] 250 mg PO BID 05/04/18 22:10 Sodium Chloride 0.9% [Normal Saline] 1,000 ml IV ASDIRECTED 05/04/18 Dinner ADA Diabetic [[employer] Diet] [DIET] 05/05/18 09:55 VANCOMYCIN TROUGH [CHEM] Timed 05/06/18 05:00 BMP [BASIC METABOLIC PANEL,BMP] [CHEM] DAILY CBC WITH AUTO DIFF [HEME] DAILY CRP [C-REACTIVE PROTEIN] [CHEM] DAILY INR,PT,PROTHROMBIN TIME [COAG] DAILY LACTIC ACID [CHEM] DAILY 05/06/18 09:00 Potassium Chloride [Klor-Con M20] 20 meq PO DAILY 05/07/18 05:00 BMP [BASIC METABOLIC PANEL,BMP] [CHEM] DAILY CBC WITH AUTO DIFF [HEME] DAILY CRP [C-REACTIVE PROTEIN] [CHEM] DAILY INR,PT,PROTHROMBIN TIME [COAG] DAILY LACTIC ACID [CHEM] DAILY - Plan Plan:: Impression: Febrile neutropenia; WBCs are improving S/P I and D of Labial cyst Hgb decreased~7.4-->stable >9.0 History of bilateral mastectomy, s/p recent CTX, antineoplastic agent is unknown Chronic A Fib HLD HTN GERD DM type 2 Morbid obesity Anxiety/Depression Plan: IVF ATB, Zosyn/Vanco-->continue until reverse isolation is stopped. [place] stimulating factor-->continue Home meds Daily labs PT/OT Consult-->increase activity as tolerated. Clarify radiology study mentioned regarding lower extremity. Return to [place] at [place] DVT/GI prophylaxis
[2018-05-05] MEDS: Potassium Chloride 20 MEQ Tab.ER PO SCH (11:37)
[2018-05-05] MEDS: Warfarin 5 MG Tab PO SCH (17:28)
[2018-05-05] MEDS: Acetaminophen 325 MG Tab PO PRN (21:22)
[2018-05-05] MEDS: Simvastatin 20 MG Tab PO SCH (21:22)
[2018-05-06] MEDS: Piperacillin/Tazobactam 4.5 GM in Sodium Chloride 0.9% 100 ML IV SCH (03:42)
[2018-05-06] MEDS: Pantoprazole 40 MG Tab.CR PO SCH (06:27)
[2018-05-06] MEDS: Insulin Aspart 100 Units/ML 3 ML Pen SUBCUT SCH ×2 (08:51→22:02)
[2018-05-06] MEDS: Saccharomyces Boulardii (Probiotic) 250 MG Cap PO SCH ×2 (08:52→21:44)
[2018-05-06] MEDS: Multivitamins with Minerals/Folic Acid/Lutein/Zeaxanth Tab PO SCH (08:52)
[2018-05-06] MEDS: Multivitamins,Therapeutic Tab PO SCH (08:52)
[2018-05-06] MEDS: LORazepam 1 MG Tab PO SCH ×2 (08:53→21:44)
[2018-05-06] MEDS: Ascorbic Acid 500 MG Tab PO SCH (08:53)
[2018-05-06] MEDS: metFORMIN 500 MG Tab PO SCH ×2 (08:53→16:47)
[2018-05-06] MEDS: Diltiazem IR 30 MG Tab PO SCH ×3 (08:53→21:45)
[2018-05-06] MEDS ORDERED: Potassium Chloride 20 MEQ Tab.ER PO SCH (09:00)
[2018-05-06] MEDS: Vancomycin 1 GM, Vancomycin 500 MG in Sodium Chloride 0.9% 500 ML IV SCH (09:45)
[2018-05-06] MEDS ORDERED: Levofloxacin/Dextrose 5%-Water 750 MG in Premix Bag 1 BAG IV SCH ×2 (11:30→12:30)
[2018-05-06] MEDS ORDERED: Cefepime 2 GM in Premix Bag 1 BAG IV SCH (11:30)
--- NOTE | 2018-05-06 11:31 | PCM.PN ---
- General Info Date of Service: 05/06/18 Subjective Update: Getting stronger, needs encouragement to walk. Discussed ATB change IV for 48 hours before change to appropriate oral agent. Functional Status: Reports: Pain Controlled, Tolerating Diet, Ambulating, Urinating - Review of Systems General: Reports: Weakness HEENT: Reports: No Symptoms Pulmonary: Reports: No Symptoms Cardiovascular: Reports: No Symptoms Gastrointestinal: Reports: No Symptoms Genitourinary: Reports: No Symptoms Musculoskeletal: Reports: No Symptoms Skin: Reports: No Symptoms Neurological: Reports: No Symptoms Psychiatric: Reports: No Symptoms - Patient Data Vitals - Most Recent: Last Vital Signs Temp 36.8 C 05/06/18 08:55 Pulse 84 05/06/18 08:55 Resp 14 05/06/18 08:55 BP 132/72 05/06/18 08:55 Pulse Ox 97 05/06/18 08:55 Weight - Most Recent: 118.841 kg I&O - Last 24 Hours: Intake & Output 05/05/18 05/06/18 05/06/18 22:59 06:59 14:59 Intake Total 1720 1100 300 Output Total 400 700 Balance 1320 400 300 Lab Results Last 24 Hours: Laboratory Results - last 24 hr 05/05/18 05/06/18 05/06/18 Range/Units 21:19 06:26 06:55 WBC 2.80 L (3.98-10.04) K/mm3 RBC 3.35 L (3.98-5.22) M/mm3 Hgb 9.7 L (11.2-15.7) gm/L Hct 31.1 L (34.1-44.9) % MCV 92.8 (79.4-94.8) fl MCH 29.0 (25.6-32.2) pg MCHC 31.2 L (32.2-35.5) g/dl RDW Std Deviation 68.5 H (36.4-46.3) fL Plt Count 160 L (182-369) K/mm3 MPV 10.0 (9.4-12.3) fl Neut % (Auto) 50.8 (34.0-71.1) % Lymph % (Auto) 15.7 L (19.3-51.7) % [place] % (Auto) 28.9 H (4.7-12.5) % Eos % (Auto) 2.1 (0.7-5.8) Baso % (Auto) 0.7 (0.1-1.2) % Neut # (Auto) 1.42 L (1.56-6.13) K/mm3 Lymph # (Auto) 0.44 L (1.18-3.74) K/mm3 [place] # (Auto) 0.81 H (0.24-0.36) K/mm3 Eos # (Auto) 0.06 (0.04-0.36) K/mm3 Baso # (Auto) 0.02 (0.01-0.08) K/mm3 Manual Slide Review Abnormal smear PT (9.5-12.1) SECONDS INR Sodium (136-145) mEq/L Potassium (3.5-5.1) mEq/L Chloride (98-107) mEq/L Carbon Dioxide (21-32) mEq/L Anion Gap (5-15) BUN (7-18) mg/dL Creatinine (0.55-1.02) mg/dL Est Cr Clr Drug Dosing mL/min Estimated GFR (MDRD) (>60) mL/min BUN/Creatinine Ratio (14-18) Glucose (80-115) mg/dL POC Glucose 143 H 116 H (80-115) mg/dL Lactic Acid (0.4-2.0) mmol/L Calcium (8.5-10.1) mg/dL C-Reactive Protein (<1.0) mg/dL 05/06/18 05/06/18 05/06/18 Range/Units 06:55 06:55 06:55 WBC (3.98-10.04) K/mm3 RBC (3.98-5.22) M/mm3 Hgb (11.2-15.7) gm/L Hct (34.1-44.9) % MCV (79.4-94.8) fl MCH (25.6-32.2) pg MCHC (32.2-35.5) g/dl RDW Std Deviation (36.4-46.3) fL Plt Count (182-369) K/mm3 MPV (9.4-12.3) fl Neut % (Auto) (34.0-71.1) % Lymph % (Auto) (19.3-51.7) % [place] % (Auto) (4.7-12.5) % Eos % (Auto) (0.7-5.8) Baso % (Auto) (0.1-1.2) % Neut # (Auto) (1.56-6.13) K/mm3 Lymph # (Auto) (1.18-3.74) K/mm3 [place] # (Auto) (0.24-0.36) K/mm3 Eos # (Auto) (0.04-0.36) K/mm3 Baso # (Auto) (0.01-0.08) K/mm3 Manual Slide Review PT 28.8 H (9.5-12.1) SECONDS INR 2.69 Sodium 140 (136-145) mEq/L Potassium 3.9 (3.5-5.1) mEq/L Chloride 103 (98-107) mEq/L Carbon Dioxide 25 (21-32) mEq/L Anion Gap 15.9 H (5-15) BUN 9 (7-18) mg/dL Creatinine 1.5 H (0.55-1.02) mg/dL Est Cr Clr Drug Dosing 34.26 mL/min Estimated GFR (MDRD) 35 (>60) mL/min BUN/Creatinine Ratio 6.0 L (14-18) Glucose 125 H (80-115) mg/dL POC Glucose (80-115) mg/dL Lactic Acid 1.6 (0.4-2.0) mmol/L Calcium 8.5 (8.5-10.1) mg/dL C-Reactive Protein 5.7 H* (<1.0) mg/dL Jim Results Last 24 Hours: Microbiology 05/03/18 16:30 Aerobic Blood Culture - Preliminary Blood NO GROWTH AFTER 2 DAYS Anaerobic Blood Culture - Preliminary NO GROWTH AFTER 2 DAYS 05/03/18 13:15 Gram Stain - Final Groin, Unspecified Anaerobic Culture - Preliminary Pseudomonas Aeruginosa Med Orders - Current: Current Medications Acetaminophen (Tylenol) 650 mg PO Q4H PRN PRN Reason: Pain/Fever Last Admin: 05/05/18 21:22 Dose: 650 mg Ascorbic Acid (Vitamin C) 1,000 mg PO DAILY [facility] Last Admin: 05/06/18 08:53 Dose: 1,000 mg Dextrose/Water (Dextrose 50% In Water) 50 ml IVPUSH ASDIRECTED PRN PRN Reason: Blood Glucose Diltiazem HCl (Cardizem) 30 mg PO TID [facility] Last Admin: 05/06/18 08:53 Dose: 30 mg Sodium Chloride (Normal Saline) 1,000 mls @ 50 mls/hr IV ASDIRECTED [facility] Last Admin: 05/04/18 22:14 Dose: 50 mls/hr Cefepime HCl 2 gm/ Premix 50 mls @ 100 mls/hr IV Q8H [facility] Levofloxacin/Dextrose 750 mg/ (Premix) 150 mls @ 100 mls/hr IV Q48H [facility] Insulin Aspart (Novolog) 0 unit SUBCUT BID@0700,2100 [facility]; Protocol Last Admin: 05/06/18 08:51 Dose: Not Given Lorazepam (Ativan) 1 mg PO BID [facility] Last Admin: 05/06/18 08:53 Dose: 1 mg Metformin HCl (Glucophage) 500 mg PO BID@0800,1700 [facility] Last Admin: 05/06/18 08:53 Dose: 500 mg Multivitamins (Thera) 1 each PO DAILY [facility] Last Admin: 05/06/18 08:52 Dose: 1 each Oxycodone HCl (Oxycodone) 5 mg PO Q4H PRN PRN Reason: Pain Pantoprazole Sodium (Protonix) 20 mg PO DAILY@0700 [facility] Last Admin: 05/06/18 06:27 Dose: 20 mg Polyethylene Glycol (Miralax) 17 gm PO DAILY PRN PRN Reason: Constipation Saccharomyces Boulardii (Florastor) 250 mg PO BID [facility] Last Admin: 05/06/18 08:52 Dose: 250 mg Simvastatin (Zocor) 20 mg PO BEDTIME [facility] Last Admin: 05/05/18 21:22 Dose: 20 mg Sodium Chloride (Saline Flush) 10 ml FLUSH ASDIRECTED PRN PRN Reason: Keep Vein Open Vit A/Vit C/Vit E/Selen/Cu/Zn/Lutei (Icaps Mv) 1 tab PO DAILY [facility] Last Admin: 05/06/18 08:52 Dose: 1 tab Warfarin Sodium (Coumadin) 5 mg PO SuTuWeThSa@1800 [facility] Last Admin: 05/05/18 17:28 Dose: 5 mg Warfarin Sodium (Coumadin) 7.5 mg PO MoFr@1800 [facility] Last Admin: 07/20/18 17:16 Dose: 7.5 mg Discontinued Medications Furosemide (Lasix) 40 mg IVPUSH ASDIRECTED [facility] Stop: 05/04/18 21:00 Last Admin: 05/04/18 12:00 Dose: 40 mg Vancomycin HCl 2 gm/ Sodium (Chloride) 250 mls @ 250 mls/hr IV ONETIME ONE Stop: 05/03/18 15:29 Last Admin: 05/03/18 18:50 Dose: Not Given Vancomycin HCl 2 gm/ Sodium (Chloride) 500 mls @ 500 mls/hr IV ONETIME ONE Stop: 05/03/18 15:29 Last Admin: 05/03/18 17:47 Dose: 500 mls/hr Piperacillin Sod/Tazobactam (Sod 4.5 gm/ Sodium Chloride) 100 mls @ 200 mls/hr IV ONETIME ONE Stop: 05/03/18 16:29 Last Admin: 05/03/18 20:34 Dose: Not Given Piperacillin Sod/Tazobactam (Sod 4.5 gm/ Sodium Chloride) 100 mls @ 25 mls/hr IV Q8H [facility] Last Admin: 05/06/18 03:42 Dose: 25 mls/hr Piperacillin Sod/Tazobactam (Sod 4.5 gm/ Sodium Chloride) 100 mls @ 200 mls/hr IV ONETIME ONE Stop: 05/03/18 20:59 Last Admin: 05/03/18 20:35 Dose: 200 mls/hr Sodium Chloride (Normal Saline) 1,000 mls @ 50 mls/hr IV ASDIRECTED [facility] Sodium Chloride (Normal Saline) 250 mls @ 50 mls/hr IV ASDIRECTED [facility] Stop: 05/04/18 13:00 Last Admin: 05/04/18 12:08 Dose: 50 mls/hr Vancomycin HCl 1 gm/Vancomycin HCl 500 mg/ Sodium Chloride 500 mls @ 333.333 mls/hr IV Q12H [facility] Last Admin: 05/06/18 09:45 Dose: 250 mls/hr Lidocaine HCl (Xylocaine 1%) 50 ml INJECT ONETIME ONE Stop: 05/03/18 12:50 Last Admin: 05/03/18 13:21 Dose: 50 ml Metformin HCl (Glucophage) 500 mg PO BIDMEALS [facility] Last Admin: 05/05/18 16:42 Dose: 500 mg Potassium Chloride (Klor-Con M20) 20 meq PO DAILY [facility] Last Admin: 05/04/18 08:26 Dose: 20 meq Potassium Chloride (Klor-Con M20) 40 meq PO BID [facility] Stop: 05/05/18 21:01 Last Admin: 05/05/18 11:37 Dose: Not Given Potassium Chloride (Klor-Con M20) 20 meq PO DAILY [facility] Tbo-Filgrastim (Granix) 480 mcg SUBCUT ONETIME ONE Stop: 05/04/18 10:01 Last Admin: 05/04/18 12:09 Dose: 480 mcg - Exam Quality Assessment: DVT Prophylaxis General: Alert, Oriented, Cooperative, No Acute Distress HEENT: Pupils Equal, Pupils Reactive, EOMI Neck: Trachea Midline, No JVD Lungs: Normal Respiratory Effort, Decreased Breath Sounds Cardiovascular: Regular Rate, Regular Rhythm GI/Abdominal Exam: Normal Bowel Sounds, Soft, Non-Tender, No Organomegaly, No Distention (Female) Exam: Deferred Back Exam: Normal Inspection Extremities: Normal Inspection, Normal Range of Motion, Non-Tender, No Pedal Edema, Normal Capillary Refill Skin: Warm Neurological: No New Focal Deficit, Normal Speech, Cranial Nerves Intact Psy/Mental Status: Alert, Normal Affect, Normal Mood - Problem List Review Problem List Initiated/Reviewed/Updated: Yes - My Orders Last 24 Hours: My Active Orders 05/06/18 08:00 metFORMIN [Glucophage] 500 mg PO BID@0800,1700 05/06/18 11:30 Cefepime [Maxipime in D5W 2 GM/50 ML] 2 gm Premix Bag 1 bag IV Q8H Levofloxacin/Dextrose 5%-Water [Levaquin in D5W 750 MG/150 ML] 750 mg Premix Bag 1 bag IV Q48H 05/07/18 05:00 BMP [BASIC METABOLIC PANEL,BMP] [CHEM] DAILY CBC WITH AUTO DIFF [HEME] DAILY CRP [C-REACTIVE PROTEIN] [CHEM] DAILY INR,PT,PROTHROMBIN TIME [COAG] DAILY LACTIC ACID [CHEM] DAILY - Plan Plan:: Impression: Febrile neutropenia; WBCs-->DCd reverse isolation S/P I and D of Labial cyst (POD 3) Hgb decreased~7.4-->stable >9.0 History of bilateral mastectomy, s/p recent CTX, antineoplastic agent is unknown Chronic A Fib HLD HTN GERD DM type 2 Morbid obesity Anxiety/Depression Plan: IVF ATB, target pseudomonas: cefepime, levoquin [place] stimulating factor-->continue until WBCs>4.5 Home meds Daily labs PT/OT Consult-->increase activity as tolerated. Clarify radiology study mentioned regarding lower extremity. Return to [place] at [place] DVT/GI prophylaxis LOS>96 hours with slow gradual response to neutropenia
[2018-05-06] MEDS: Cefepime 2 GM in Premix Bag 1 BAG IV SCH (12:21)
[2018-05-06] MEDS: Simvastatin 20 MG Tab PO SCH (21:44)
[2018-05-06] MEDS: Acetaminophen 325 MG Tab PO PRN (21:52)
[2018-05-07] MEDS: Cefepime 2 GM in Premix Bag 1 BAG IV SCH ×2 (01:22→12:36)
[2018-05-07] MEDS: metFORMIN 500 MG Tab PO SCH ×2 (07:53→18:20)
[2018-05-07] MEDS: Insulin Aspart 100 Units/ML 3 ML Pen SUBCUT SCH ×2 (07:53→21:00)
[2018-05-07] MEDS: Pantoprazole 40 MG Tab.CR PO SCH (08:00)
[2018-05-07] MEDS: Ascorbic Acid 500 MG Tab PO SCH (08:49)
[2018-05-07] MEDS: LORazepam 1 MG Tab PO SCH ×2 (08:49→20:56)
[2018-05-07] MEDS: Multivitamins,Therapeutic Tab PO SCH (08:49)
[2018-05-07] MEDS: Saccharomyces Boulardii (Probiotic) 250 MG Cap PO SCH ×2 (08:49→20:56)
[2018-05-07] MEDS: Diltiazem IR 30 MG Tab PO SCH ×3 (08:49→20:56)
[2018-05-07] MEDS: Multivitamins with Minerals/Folic Acid/Lutein/Zeaxanth Tab PO SCH (08:49)
--- NOTE | 2018-05-07 14:04 | PCM.PN ---
- General Info Date of Service: 05/07/18 Functional Status: Reports: Pain Controlled, Tolerating Diet, Ambulating, Urinating - Review of Systems General: Reports: Weakness (improved) HEENT: Reports: No Symptoms Pulmonary: Reports: No Symptoms Cardiovascular: Reports: No Symptoms Gastrointestinal: Reports: No Symptoms Genitourinary: Reports: No Symptoms Musculoskeletal: Reports: No Symptoms Skin: Reports: No Symptoms Neurological: Reports: No Symptoms Psychiatric: Reports: No Symptoms - Patient Data Vitals - Most Recent: Last Vital Signs Temp 36.6 C 05/07/18 11:25 Pulse 74 05/07/18 11:25 Resp 18 05/07/18 11:25 BP 137/75 05/07/18 12:14 Pulse Ox 98 05/07/18 11:25 Weight - Most Recent: 119.777 kg I&O - Last 24 Hours: Intake & Output 05/06/18 05/07/18 05/07/18 22:59 06:59 14:59 Intake Total 1740 650 300 Output Total 900 400 Balance 840 250 300 Lab Results Last 24 Hours: Laboratory Results - last 24 hr 05/06/18 05/07/18 05/07/18 Range/Units 22:00 06:14 06:15 WBC 3.68 L (3.98-10.04) K/mm3 RBC 3.19 L (3.98-5.22) M/mm3 Hgb 9.3 L (11.2-15.7) gm/L Hct 30.0 L (34.1-44.9) % MCV 94.0 (79.4-94.8) fl MCH 29.2 (25.6-32.2) pg MCHC 31.0 L (32.2-35.5) g/dl RDW Std Deviation 67.1 H (36.4-46.3) fL Plt Count 169 L (182-369) K/mm3 MPV 10.3 (9.4-12.3) fl Neut % (Auto) 53.3 (34.0-71.1) % Lymph % (Auto) 15.5 L (19.3-51.7) % [place] % (Auto) 23.6 H (4.7-12.5) % Eos % (Auto) 0.8 (0.7-5.8) Baso % (Auto) 0.5 (0.1-1.2) % Neut # (Auto) 1.96 (1.56-6.13) K/mm3 Lymph # (Auto) 0.57 L (1.18-3.74) K/mm3 [place] # (Auto) 0.87 H (0.24-0.36) K/mm3 Eos # (Auto) 0.03 L (0.04-0.36) K/mm3 Baso # (Auto) 0.02 (0.01-0.08) K/mm3 Manual Slide Review Abnormal smear PT (9.5-12.1) SECONDS INR Sodium (136-145) mEq/L Potassium (3.5-5.1) mEq/L Chloride (98-107) mEq/L Carbon Dioxide (21-32) mEq/L Anion Gap (5-15) BUN (7-18) mg/dL Creatinine (0.55-1.02) mg/dL Est Cr Clr Drug Dosing mL/min Estimated GFR (MDRD) (>60) mL/min BUN/Creatinine Ratio (14-18) Glucose (80-115) mg/dL POC Glucose 149 H 153 H (80-115) mg/dL Lactic Acid (0.4-2.0) mmol/L Calcium (8.5-10.1) mg/dL C-Reactive Protein (<1.0) mg/dL Vancomycin Trough (10.0-20.0) 05/07/18 05/07/18 05/07/18 Range/Units 06:15 06:15 06:15 WBC (3.98-10.04) K/mm3 RBC (3.98-5.22) M/mm3 Hgb (11.2-15.7) gm/L Hct (34.1-44.9) % MCV (79.4-94.8) fl MCH (25.6-32.2) pg MCHC (32.2-35.5) g/dl RDW Std Deviation (36.4-46.3) fL Plt Count (182-369) K/mm3 MPV (9.4-12.3) fl Neut % (Auto) (34.0-71.1) % Lymph % (Auto) (19.3-51.7) % [place] % (Auto) (4.7-12.5) % Eos % (Auto) (0.7-5.8) Baso % (Auto) (0.1-1.2) % Neut # (Auto) (1.56-6.13) K/mm3 Lymph # (Auto) (1.18-3.74) K/mm3 [place] # (Auto) (0.24-0.36) K/mm3 Eos # (Auto) (0.04-0.36) K/mm3 Baso # (Auto) (0.01-0.08) K/mm3 Manual Slide Review PT 33.9 H (9.5-12.1) SECONDS INR 3.18 Sodium 140 (136-145) mEq/L Potassium 3.6 (3.5-5.1) mEq/L Chloride 105 (98-107) mEq/L Carbon Dioxide 27 (21-32) mEq/L Anion Gap 11.6 (5-15) BUN 10 (7-18) mg/dL Creatinine 1.6 H (0.55-1.02) mg/dL Est Cr Clr Drug Dosing 31.94 mL/min Estimated GFR (MDRD) 32 (>60) mL/min BUN/Creatinine Ratio 6.3 L (14-18) Glucose 117 H (80-115) mg/dL POC Glucose (80-115) mg/dL Lactic Acid 1.6 (0.4-2.0) mmol/L Calcium 8.2 L (8.5-10.1) mg/dL C-Reactive Protein 3.6 H* (<1.0) mg/dL Vancomycin Trough (10.0-20.0) 05/07/18 Range/Units 09:33 WBC (3.98-10.04) K/mm3 RBC (3.98-5.22) M/mm3 Hgb (11.2-15.7) gm/L Hct (34.1-44.9) % MCV (79.4-94.8) fl MCH (25.6-32.2) pg MCHC (32.2-35.5) g/dl RDW Std Deviation (36.4-46.3) fL Plt Count (182-369) K/mm3 MPV (9.4-12.3) fl Neut % (Auto) (34.0-71.1) % Lymph % (Auto) (19.3-51.7) % [place] % (Auto) (4.7-12.5) % Eos % (Auto) (0.7-5.8) Baso % (Auto) (0.1-1.2) % Neut # (Auto) (1.56-6.13) K/mm3 Lymph # (Auto) (1.18-3.74) K/mm3 [place] # (Auto) (0.24-0.36) K/mm3 Eos # (Auto) (0.04-0.36) K/mm3 Baso # (Auto) (0.01-0.08) K/mm3 Manual Slide Review PT (9.5-12.1) SECONDS INR Sodium (136-145) mEq/L Potassium (3.5-5.1) mEq/L Chloride (98-107) mEq/L Carbon Dioxide (21-32) mEq/L Anion Gap (5-15) BUN (7-18) mg/dL Creatinine (0.55-1.02) mg/dL Est Cr Clr Drug Dosing mL/min Estimated GFR (MDRD) (>60) mL/min BUN/Creatinine Ratio (14-18) Glucose (80-115) mg/dL POC Glucose (80-115) mg/dL Lactic Acid (0.4-2.0) mmol/L Calcium (8.5-10.1) mg/dL C-Reactive Protein (<1.0) mg/dL Vancomycin Trough 18.7 (10.0-20.0) Jim Results Last 24 Hours: Microbiology 05/03/18 16:30 Aerobic Blood Culture - Preliminary Blood NO GROWTH AFTER 3 DAYS Anaerobic Blood Culture - Preliminary NO GROWTH AFTER 3 DAYS 05/03/18 13:15 Gram Stain - Final Groin, Unspecified Anaerobic Culture - Final Pseudomonas Aeruginosa Med Orders - Current: Current Medications Acetaminophen (Tylenol) 650 mg PO Q4H PRN PRN Reason: Pain/Fever Last Admin: 05/06/18 21:52 Dose: 650 mg Ascorbic Acid (Vitamin C) 1,000 mg PO DAILY [facility] Last Admin: 05/07/18 08:49 Dose: 1,000 mg Dextrose/Water (Dextrose 50% In Water) 50 ml IVPUSH ASDIRECTED PRN PRN Reason: Blood Glucose Diltiazem HCl (Cardizem) 30 mg PO TID [facility] Last Admin: 05/07/18 08:49 Dose: 30 mg Sodium Chloride (Normal Saline) 1,000 mls @ 50 mls/hr IV ASDIRECTED [facility] Last Admin: 05/04/18 22:14 Dose: 50 mls/hr Cefepime HCl 2 gm/ Premix 50 mls @ 100 mls/hr IV Q12H [facility] Last Admin: 05/07/18 12:36 Dose: 100 mls/hr Levofloxacin/Dextrose 750 mg/ (Premix) 150 mls @ 100 mls/hr IV Q48H [facility] Last Admin: 05/06/18 12:57 Dose: 100 mls/hr Insulin Aspart (Novolog) 0 unit SUBCUT BID@0700,2100 [facility]; Protocol Last Admin: 05/07/18 07:53 Dose: 1 unit Lorazepam (Ativan) 1 mg PO BID [facility] Last Admin: 05/07/18 08:49 Dose: 1 mg Metformin HCl (Glucophage) 500 mg PO BID@0800,1700 [facility] Last Admin: 05/07/18 07:53 Dose: 500 mg Multivitamins (Thera) 1 each PO DAILY [facility] Last Admin: 05/07/18 08:49 Dose: 1 each Oxycodone HCl (Oxycodone) 5 mg PO Q4H PRN PRN Reason: Pain Pantoprazole Sodium (Protonix) 20 mg PO DAILY@0700 [facility] Last Admin: 05/07/18 08:00 Dose: 20 mg Polyethylene Glycol (Miralax) 17 gm PO DAILY PRN PRN Reason: Constipation Saccharomyces Boulardii (Florastor) 250 mg PO BID [facility] Last Admin: 05/07/18 08:49 Dose: 250 mg Simvastatin (Zocor) 20 mg PO BEDTIME [facility] Last Admin: 05/06/18 21:44 Dose: 20 mg Sodium Chloride (Saline Flush) 10 ml FLUSH ASDIRECTED PRN PRN Reason: Keep Vein Open Vit A/Vit C/Vit E/Selen/Cu/Zn/Lutei (Icaps Mv) 1 tab PO DAILY [facility] Last Admin: 05/07/18 08:49 Dose: 1 tab Warfarin Sodium (Coumadin) 5 mg PO SuTuWeThSa@1800 [facility] Last Admin: 05/05/18 17:28 Dose: 5 mg Warfarin Sodium (Coumadin) 7.5 mg PO MoFr@1800 [facility] Last Admin: 05/04/18 17:16 Dose: 7.5 mg Discontinued Medications Furosemide (Lasix) 40 mg IVPUSH ASDIRECTED [facility] Stop: 05/04/18 21:00 Last Admin: 05/04/18 12:00 Dose: 40 mg Vancomycin HCl 2 gm/ Sodium (Chloride) 250 mls @ 250 mls/hr IV ONETIME ONE Stop: 05/03/18 15:29 Last Admin: 05/03/18 18:50 Dose: Not Given Vancomycin HCl 2 gm/ Sodium (Chloride) 500 mls @ 500 mls/hr IV ONETIME ONE Stop: 05/03/18 15:29 Last Admin: 05/03/18 17:47 Dose: 500 mls/hr Piperacillin Sod/Tazobactam (Sod 4.5 gm/ Sodium Chloride) 100 mls @ 200 mls/hr IV ONETIME ONE Stop: 05/03/18 16:29 Last Admin: 05/03/18 20:34 Dose: Not Given Piperacillin Sod/Tazobactam (Sod 4.5 gm/ Sodium Chloride) 100 mls @ 25 mls/hr IV Q8H [facility] Last Admin: 05/06/18 03:42 Dose: 25 mls/hr Piperacillin Sod/Tazobactam (Sod 4.5 gm/ Sodium Chloride) 100 mls @ 200 mls/hr IV ONETIME ONE Stop: 05/03/18 20:59 Last Admin: 05/03/18 20:35 Dose: 200 mls/hr Sodium Chloride (Normal Saline) 1,000 mls @ 50 mls/hr IV ASDIRECTED [facility] Sodium Chloride (Normal Saline) 250 mls @ 50 mls/hr IV ASDIRECTED [facility] Stop: 05/04/18 13:00 Last Admin: 05/04/18 12:08 Dose: 50 mls/hr Vancomycin HCl 1 gm/Vancomycin HCl 500 mg/ Sodium Chloride 500 mls @ 333.333 mls/hr IV Q12H [facility] Last Admin: 05/06/18 09:45 Dose: 250 mls/hr Cefepime HCl 2 gm/ Premix 50 mls @ 100 mls/hr IV Q8H [facility] Last Admin: 05/06/18 12:46 Dose: Not Given Levofloxacin/Dextrose 750 mg/ (Premix) 150 mls @ 100 mls/hr IV Q48H [facility] Last Admin: 05/06/18 12:45 Dose: Not Given Lidocaine HCl (Xylocaine 1%) 50 ml INJECT ONETIME ONE Stop: 05/03/18 12:50 Last Admin: 05/03/18 13:21 Dose: 50 ml Metformin HCl (Glucophage) 500 mg PO BIDMEALS [facility] Last Admin: 05/05/18 16:42 Dose: 500 mg Potassium Chloride (Klor-Con M20) 20 meq PO DAILY [facility] Last Admin: 05/04/18 08:26 Dose: 20 meq Potassium Chloride (Klor-Con M20) 40 meq PO BID [facility] Stop: 05/05/18 21:01 Last Admin: 05/05/18 11:37 Dose: Not Given Potassium Chloride (Klor-Con M20) 20 meq PO DAILY [facility] Tbo-Filgrastim (Granix) 480 mcg SUBCUT ONETIME ONE Stop: 05/04/18 10:01 Last Admin: 05/04/18 12:09 Dose: 480 mcg - Exam Quality Assessment: DVT Prophylaxis General: Alert, Oriented, Cooperative, No Acute Distress HEENT: Pupils Equal, Pupils Reactive, EOMI Neck: Trachea Midline, No JVD Lungs: Normal Respiratory Effort Cardiovascular: Regular Rate, Regular Rhythm GI/Abdominal Exam: Normal Bowel Sounds, Soft, Non-Tender, No Organomegaly, No Distention (Female) Exam: Deferred Back Exam: Normal Inspection Extremities: Normal Inspection, Normal Capillary Refill Skin: Warm Neurological: No New Focal Deficit, Normal Speech Psy/Mental Status: Alert, Normal Affect, Normal Mood - Problem List Review Problem List Initiated/Reviewed/Updated: Yes - My Orders Last 24 Hours: My Active Orders 05/07/18 11:25 Femur Min 2V Rt [CR] Routine - Plan Plan:: Impression: Febrile neutropenia; WBCs-->DCd reverse isolation S/P I and D of Labial cyst (POD 4) Hgb decreased~7.4-->stable >9.0 History of bilateral mastectomy, s/p recent CTX, antineoplastic agent is unknown Chronic A Fib HLD HTN GERD DM type 2 Morbid obesity Anxiety/Depression Plan: IVF-stopped XRay of LE today ATB, target pseudomonas: cefepime, levoquin; start levoquin oral tabs tomorrow [place] stimulating factor-->continue until WBCs>4.5 Home meds Daily labs PT/OT Consult-->increase activity as tolerated. Clarify radiology study mentioned regarding lower extremity. Return to [place] at [place] DVT/GI prophylaxis LOS>96 hours with slow gradual response to neutropenia
--- NOTE | 2018-05-07 14:16 | CR ---
Right femur: AP and lateral views of the right femur were obtained. Comparison: Prior right knee exam of 04/06/18. Fracture is identified within the distal femur. Plate and screws are noted affixing the fracture. Medial joint space narrowing is noted. Osteophytes are noted off the medial and lateral tibia. Degenerative change is partially seen within the patellofemoral joint. Impression: 1. Distal right femur fracture showing placement of plate and screws. 2. Degenerative change within the knee. Diagnostic code #2
[2018-05-07] MEDS: Simvastatin 20 MG Tab PO SCH (20:56)
[2018-05-07] MEDS: Acetaminophen 325 MG Tab PO PRN (21:14)
[2018-05-08] MEDS: Cefepime 2 GM in Premix Bag 1 BAG IV SCH (00:47)
[2018-05-08] MEDS ORDERED: Pantoprazole 40 MG Tab.CR PO SCH (06:30)
[2018-05-08] MEDS: Insulin Aspart 100 Units/ML 3 ML Pen SUBCUT SCH (07:01)
[2018-05-08] MEDS: metFORMIN 500 MG Tab PO SCH (08:40)
[2018-05-08] MEDS: Multivitamins with Minerals/Folic Acid/Lutein/Zeaxanth Tab PO SCH (08:40)
[2018-05-08] MEDS: Multivitamins,Therapeutic Tab PO SCH (08:40)
[2018-05-08] MEDS: LORazepam 1 MG Tab PO SCH (08:40)
[2018-05-08] MEDS: Diltiazem IR 30 MG Tab PO SCH (08:40)
[2018-05-08] MEDS: Ascorbic Acid 500 MG Tab PO SCH (08:40)
[2018-05-08] MEDS: Saccharomyces Boulardii (Probiotic) 250 MG Cap PO SCH (08:40)
[2018-05-08 08:42] VITALS: BP 145/74
--- NOTE | 2018-05-08 09:28 | PCM.DCSUM1 ---
Discharge Summary - Hospital Course Free Text/Narrative:: 67 year old female with breast cancer, history of bilateral mastectomy was neutropenic after recent CTX. She was placed in reverse isolation and treated with two ATBs. The patient received a colony stimulating factor with a good response, the reverse isolation was cancelled. Consult for PT/OT were performed. She had an X ray of her RLE for follow after an orthopedic repair. She was discharged to [facility] with only Levoquin 250 mg daily for 6 days. INR is to be checked the last Monday in April. The Coumadin is on hold to prevent a drug interaction. HPI Initial Comments: 67 year od female with breast cancer s/p CTX with neutropenia; had been seen by an urgent care and sent to the ED for I/D of a labial cyst. 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 Th cyst was drained with a subsequent culture sent for analysis as well as BCs followed by Vancomycin started in the ED; she will be admitted to [facility] with telemetry. The plan of action was discussed by the ED doctor with her oncologist, Dr Garcia. An additional broad spectrum ATB will be added; the patient will be placed in reverse isolation. She will be admitted to CT with telemetry. She is a full code. Diagnosis: Stroke: No - Discharge Data Discharge Date: 05/08/18 Discharge Disposition: DC/Tfer to SNF 03 Condition: Good - Patient Summary/Data Consults: Consultations 05/04/18 12:40 Consult to Occupational Therapy [OT Evaluation and Treatment] [CONS] Routine PT Evaluation and Treatment [CONS] Routine - Patient Instructions Diet: Diabetic Diet Activity: As Tolerated Driving: Do Not Drive Showering/Bathing: May Shower Notify Provider of: Fever, Increased Pain, Nausea and/or Vomiting - Discharge Plan *PRESCRIPTION DRUG MONITORING PROGRAM REVIEWED*: Not Applicable *COPY OF PRESCRIPTION DRUG MONITORING REPORT IN PATIENT ROYCE: Not Applicable Prescriptions/Med Rec: levoFLOXacin [Levaquin] 250 mg PO Q24H #6 tablet Saccharomyces Boulardii [Florastor] 250 mg PO BID #14 cap Home Medications: Home Meds Acetaminophen 650 mg PO Q4H PRN 11/01/14 [History] Furosemide [Lasix] 20 mg PO DAILY 11/01/14 [History] LORazepam 1 mg PO BID 11/01/14 [History] Omeprazole 20 mg PO DAILY 11/01/14 [History] Potassium Chloride [Klor-Con M20] 20 meq PO DAILY 11/01/14 [History] Pravastatin [Pravachol] 40 mg PO BEDTIME 11/01/14 [History] metFORMIN [Glucophage] 500 mg PO BID 11/01/14 [History] A/C/E/Zinc Ox/Cupric Ox/Lutein [Macuvite Eye Care Tablet] 1 tab PO DAILY [History] Ascorbic Acid [Vitamin C] 1,000 mg PO DAILY 04/06/18 [History] Calcium Carbonate/Vitamin D3 [Calcium 1,000 + D3 Caplet] 1 each PO DAILY [History] Diltiazem HCl [Cardizem] 30 mg PO TID 04/06/18 [History] Ibuprofen 200 mg PO Q4H PRN 05/03/18 [History] Lisinopril 20 mg PO DAILY 05/03/18 [History] Multivitamin/Iron/Folic Acid [Centrum Adults Tablet] 1 each PO DAILY 05/03/18 [ History] Polyethylene Glycol 3350 [MiraLAX] 17 gm PO DAILY PRN 05/03/18 [History] oxyCODONE 5 mg PO Q4H PRN 05/03/18 [History] Saccharomyces Boulardii [Florastor] 250 mg PO BID #14 cap 05/08/18 [Rx] Warfarin [Coumadin] 5 mg PO ASDIRECTED #0 05/08/18 [Rx] Warfarin [Coumadin] 7.5 mg PO ASDIRECTED #0 05/08/18 [Rx] levoFLOXacin [Levaquin] 250 mg PO Q24H #6 tablet 05/08/18 [Rx] Other Amb Orders: INR,PT,PROTHROMBIN TIME [COAG] Time Frame: 05/14/18, Facility: [facility], Location: [facility] - JDN Forms: ED Department Discharge Referrals: Jeniffer He PA-C [Primary Care Provider] - - Discharge Summary/Plan Comment DC Time >30 min.: No Discharge Summary/Plan Comment: Impression: Febrile neutropenia; WBCs-->DCd reverse isolation S/P I and D of Labial cyst (POD 5) Hgb decreased~7.4-->stable >9.0 History of bilateral mastectomy, s/p recent CTX, antineoplastic agent is unknown Chronic A Fib on Coumadin , held because of Levoquin interaction HLD HTN GERD DM type 2 Morbid obesity Anxiety/Depression Plan: IVF-stopped XRay of LE today ATB, target pseudomonas: cefepime, levoquin; start levoquin oral tabs tomorrow [place] stimulating factor-->continue until WBCs>4.5 Home meds Daily labs PT/OT Consult-->increase activity as tolerated. ----> Today (05/08/18, Return to [facility] at [place] ---->X ray of RLE unremarkable DVT/GI prophylaxis--->Coumadin held to avoid elevated INR on Levoquin ---->LOS>96 hours with slow gradual response to neutropenia - General Info Date of Service: 05/03/18 Functional Status: Reports: Pain Controlled, Tolerating Diet, Ambulating, Urinating - Review of Systems General: Reports: No Symptoms HEENT: Reports: No Symptoms Pulmonary: Reports: No Symptoms Cardiovascular: Reports: No Symptoms Gastrointestinal: Reports: No Symptoms Genitourinary: Reports: No Symptoms Musculoskeletal: Reports: No Symptoms Skin: Reports: No Symptoms Neurological: Reports: No Symptoms Psychiatric: Reports: No Symptoms - Patient Data Vitals - Most Recent: Last Vital Signs Temp 36.3 C 05/08/18 08:39 Pulse 85 05/08/18 08:39 Resp 16 05/08/18 08:39 BP 145/74 H 05/08/18 08:39 Pulse Ox 98 05/08/18 08:39 Weight - Most Recent: 119.884 kg I&O - Last 24 hours: Intake & Output 05/07/18 05/08/18 05/08/18 22:59 06:59 14:59 Intake Total 920 900 Output Total 1300 1000 Balance -380 -100 Lab Results - Last 24 hrs: Laboratory Results - last 24 hr 05/04/18 05/07/18 05/07/18 Range/Units 05:50 09:33 20:55 WBC (3.98-10.04) K/mm3 RBC (3.98-5.22) M/mm3 Hgb (11.2-15.7) gm/L Hct (34.1-44.9) % MCV (79.4-94.8) fl MCH (25.6-32.2) pg MCHC (32.2-35.5) g/dl RDW Std Deviation (36.4-46.3) fL Plt Count (182-369) K/mm3 MPV (9.4-12.3) fl Neut % (Auto) (34.0-71.1) % Lymph % (Auto) (19.3-51.7) % [place] % (Auto) (4.7-12.5) % Eos % (Auto) (0.7-5.8) Baso % (Auto) (0.1-1.2) % Neut # (Auto) (1.56-6.13) K/mm3 Lymph # (Auto) (1.18-3.74) K/mm3 [place] # (Auto) (0.24-0.36) K/mm3 Eos # (Auto) (0.04-0.36) K/mm3 Baso # (Auto) (0.01-0.08) K/mm3 Manual Slide Review Sodium (136-145) mEq/L Potassium (3.5-5.1) mEq/L Chloride (98-107) mEq/L Carbon Dioxide (21-32) mEq/L Anion Gap (5-15) BUN (7-18) mg/dL Creatinine (0.55-1.02) mg/dL Est Cr Clr Drug Dosing mL/min Estimated GFR (MDRD) (>60) mL/min BUN/Creatinine Ratio (14-18) Glucose (80-115) mg/dL POC Glucose 128 H (80-115) mg/dL Calcium (8.5-10.1) mg/dL Total Bilirubin (0.2-1.0) mg/dL AST (15-37) U/L ALT (14-59) U/L Alkaline Phosphatase (46-116) U/L C-Reactive Protein (<1.0) mg/dL Total Protein (6.4-8.2) g/dl Albumin (3.4-5.0) g/dl Globulin gm/dL Albumin/Globulin Ratio (1-2) Vancomycin Trough 18.7 (10.0-20.0) Crossmatch See Detail 05/08/18 05/08/18 05/08/18 Range/Units 05:44 05:44 06:57 WBC 4.07 (3.98-10.04) K/mm3 RBC 3.17 L (3.98-5.22) M/mm3 Hgb 9.1 L (11.2-15.7) gm/L Hct 29.7 L (34.1-44.9) % MCV 93.7 (79.4-94.8) fl MCH 28.7 (25.6-32.2) pg MCHC 30.6 L (32.2-35.5) g/dl RDW Std Deviation 66.3 H (36.4-46.3) fL Plt Count 180 L (182-369) K/mm3 MPV 10.2 (9.4-12.3) fl Neut % (Auto) 53.5 (34.0-71.1) % Lymph % (Auto) 11.1 L (19.3-51.7) % [place] % (Auto) 26.8 H (4.7-12.5) % Eos % (Auto) 0.7 (0.7-5.8) Baso % (Auto) 0.5 (0.1-1.2) % Neut # (Auto) 2.18 (1.56-6.13) K/mm3 Lymph # (Auto) 0.45 L (1.18-3.74) K/mm3 [place] # (Auto) 1.09 H (0.24-0.36) K/mm3 Eos # (Auto) 0.03 L (0.04-0.36) K/mm3 Baso # (Auto) 0.02 (0.01-0.08) K/mm3 Manual Slide Review Abnormal smear Sodium 141 (136-145) mEq/L Potassium 3.5 (3.5-5.1) mEq/L Chloride 105 (98-107) mEq/L Carbon Dioxide 26 (21-32) mEq/L Anion Gap 13.5 (5-15) BUN 10 (7-18) mg/dL Creatinine 1.5 H (0.55-1.02) mg/dL Est Cr Clr Drug Dosing 34.07 mL/min Estimated GFR (MDRD) 35 (>60) mL/min BUN/Creatinine Ratio 6.7 L (14-18) Glucose 114 (80-115) mg/dL POC Glucose 119 H (80-115) mg/dL Calcium 8.1 L (8.5-10.1) mg/dL Total Bilirubin 0.2 (0.2-1.0) mg/dL AST 12 L (15-37) U/L ALT 12 L (14-59) U/L Alkaline Phosphatase 62 (46-116) U/L C-Reactive Protein 2.1 H* (<1.0) mg/dL Total Protein 5.6 L (6.4-8.2) g/dl Albumin 2.4 L (3.4-5.0) g/dl Globulin 3.2 gm/dL Albumin/Globulin Ratio 0.8 L (1-2) Vancomycin Trough (10.0-20.0) Crossmatch CASEY Results - Last 24 hrs: Microbiology 05/03/18 16:30 Aerobic Blood Culture - Preliminary Blood NO GROWTH AFTER 4 DAYS Anaerobic Blood Culture - Preliminary NO GROWTH AFTER 4 DAYS Med Orders - Current: Current Medications Acetaminophen (Tylenol) 650 mg PO Q4H PRN PRN Reason: Pain/Fever Last Admin: 05/07/18 21:14 Dose: 650 mg Ascorbic Acid (Vitamin C) 1,000 mg PO DAILY [facility] Last Admin: 05/08/18 08:40 Dose: 1,000 mg Dextrose/Water (Dextrose 50% In Water) 50 ml IVPUSH ASDIRECTED PRN PRN Reason: Blood Glucose Diltiazem HCl (Cardizem) 30 mg PO TID [facility] Last Admin: 05/08/18 08:40 Dose: 30 mg Heparin Sodium (Porcine) (Heparin Lock Flush 100 Units/Ml) 500 units FLUSH ASDIRECTED ONE Stop: 05/08/18 10:31 Cefepime HCl 2 gm/ Premix 50 mls @ 100 mls/hr IV Q12H [facility] Last Admin: 05/08/18 00:47 Dose: 100 mls/hr Levofloxacin/Dextrose 750 mg/ (Premix) 150 mls @ 100 mls/hr IV Q48H [facility] Last Admin: 05/06/18 12:57 Dose: 100 mls/hr Insulin Aspart (Novolog) 0 unit SUBCUT BID@0700,2100 [facility]; Protocol Last Admin: 05/08/18 07:01 Dose: Not Given Lorazepam (Ativan) 1 mg PO BID [facility] Last Admin: 05/08/18 08:40 Dose: 1 mg Metformin HCl (Glucophage) 500 mg PO BID@0800,1700 [facility] Last Admin: 05/08/18 08:40 Dose: 500 mg Multivitamins (Thera) 1 each PO DAILY [facility] Last Admin: 05/08/18 08:40 Dose: 1 each Oxycodone HCl (Oxycodone) 5 mg PO Q4H PRN PRN Reason: Pain Pantoprazole Sodium (Protonix) 40 mg PO ACBREAKFAST [facility] Last Admin: 05/08/18 06:55 Dose: 40 mg Polyethylene Glycol (Miralax) 17 gm PO DAILY PRN PRN Reason: Constipation Saccharomyces Boulardii (Florastor) 250 mg PO BID [facility] Last Admin: 05/08/18 08:40 Dose: 250 mg Simvastatin (Zocor) 20 mg PO BEDTIME [facility] Last Admin: 05/07/18 20:56 Dose: 20 mg Sodium Chloride (Saline Flush) 10 ml FLUSH ASDIRECTED PRN PRN Reason: Keep Vein Open Vit A/Vit C/Vit E/Selen/Cu/Zn/Lutei (Icaps Mv) 1 tab PO DAILY [facility] Last Admin: 05/08/18 08:40 Dose: 1 tab Warfarin Sodium (Coumadin) 5 mg PO SuTuWeThSa@1800 [facility] Last Admin: 05/05/18 17:28 Dose: 5 mg Warfarin Sodium (Coumadin) 7.5 mg PO MoFr@1800 [facility] Last Admin: 05/04/18 17:16 Dose: 7.5 mg Discontinued Medications Furosemide (Lasix) 40 mg IVPUSH ASDIRECTED [facility] Stop: 05/04/18 21:00 Last Admin: 05/04/18 12:00 Dose: 40 mg Vancomycin HCl 2 gm/ Sodium (Chloride) 250 mls @ 250 mls/hr IV ONETIME ONE Stop: 05/03/18 15:29 Last Admin: 05/03/18 18:50 Dose: Not Given Vancomycin HCl 2 gm/ Sodium (Chloride) 500 mls @ 500 mls/hr IV ONETIME ONE Stop: 05/03/18 15:29 Last Admin: 05/03/18 17:47 Dose: 500 mls/hr Piperacillin Sod/Tazobactam (Sod 4.5 gm/ Sodium Chloride) 100 mls @ 200 mls/hr IV ONETIME ONE Stop: 05/03/18 16:29 Last Admin: 05/03/18 20:34 Dose: Not Given Piperacillin Sod/Tazobactam (Sod 4.5 gm/ Sodium Chloride) 100 mls @ 25 mls/hr IV Q8H [facility] Last Admin: 05/06/18 03:42 Dose: 25 mls/hr Piperacillin Sod/Tazobactam (Sod 4.5 gm/ Sodium Chloride) 100 mls @ 200 mls/hr IV ONETIME ONE Stop: 05/03/18 20:59 Last Admin: 05/03/18 20:35 Dose: 200 mls/hr Sodium Chloride (Normal Saline) 1,000 mls @ 50 mls/hr IV ASDIRECTED [facility] Sodium Chloride (Normal Saline) 250 mls @ 50 mls/hr IV ASDIRECTED [facility] Stop: 05/04/18 13:00 Last Admin: 05/04/18 12:08 Dose: 50 mls/hr Vancomycin HCl 1 gm/Vancomycin HCl 500 mg/ Sodium Chloride 500 mls @ 333.333 mls/hr IV Q12H [facility] Last Admin: 05/06/18 09:45 Dose: 250 mls/hr Sodium Chloride (Normal Saline) 1,000 mls @ 50 mls/hr IV ASDIRECTED [facility] Last Admin: 05/04/18 22:14 Dose: 50 mls/hr Cefepime HCl 2 gm/ Premix 50 mls @ 100 mls/hr IV Q8H [facility] Last Admin: 05/06/18 12:46 Dose: Not Given Levofloxacin/Dextrose 750 mg/ (Premix) 150 mls @ 100 mls/hr IV Q48H [facility] Last Admin: 05/06/18 12:45 Dose: Not Given Lidocaine HCl (Xylocaine 1%) 50 ml INJECT ONETIME ONE Stop: 05/03/18 12:50 Last Admin: 05/03/18 13:21 Dose: 50 ml Metformin HCl (Glucophage) 500 mg PO BIDMEALS [facility] Last Admin: 05/05/18 16:42 Dose: 500 mg Pantoprazole Sodium (Protonix) 20 mg PO DAILY@0700 [facility] Last Admin: 05/07/18 08:00 Dose: 20 mg Potassium Chloride (Klor-Con M20) 20 meq PO DAILY [facility] Last Admin: 05/04/18 08:26 Dose: 20 meq Potassium Chloride (Klor-Con M20) 40 meq PO BID [facility] Stop: 05/05/18 21:01 Last Admin: 05/05/18 11:37 Dose: Not Given Potassium Chloride (Klor-Con M20) 20 meq PO DAILY [facility] Tbo-Filgrastim (Granix) 480 mcg SUBCUT ONETIME ONE Stop: 05/04/18 10:01 Last Admin: 05/04/18 12:09 Dose: 480 mcg - Exam Quality Assessment: Reports: Supplemental Oxygen, DVT Prophylaxis General: Reports: Alert, Oriented, Cooperative, No Acute Distress HEENT: Reports: Pupils Equal, Pupils Reactive, EOMI Neck: Reports: Trachea Midline, No JVD Lungs: Reports: Clear to Auscultation, Normal Respiratory Effort Cardiovascular: Reports: Regular Rate GI/Abdominal Exam: Normal Bowel Sounds, Soft, Non-Tender, No Organomegaly, No Distention (Female) Exam: Deferred Rectal (Female) Exam: Deferred Back Exam: Reports: Normal Inspection Extremities: Normal Inspection, Normal Capillary Refill Skin: Reports: Warm Neurological: Reports: No New Focal Deficit Psy/Mental Status: Reports: Alert, Normal Affect, Normal Mood
[2018-05-08] MEDS ORDERED: Levofloxacin 250 MG Tab PO SCH (10:00)
== END 2018-05-08 11:15 | DRG 746 ==
LOC: JD.ED 11:34 → JD.MS 15:15
PROVIDERS: ADMIT Internal Medicine Cardiovascular Disease; ATTEND Internal Medicine Cardiovascular Disease
PROC: 0H99XZZ Drainage of Perineum Skin, External Approach (ICD-10-PCS; principal; 2018-05-03)
DX: N90.7 Vulvar cyst (principal); Z68.41 Body mass index [BMI] 40.0-44.9, adult; C50.919 Malignant neoplasm of unspecified site of unspecified female breast; I10 Essential (primary) hypertension; I48.91 Unspecified atrial fibrillation; D70.1 Agranulocytosis secondary to cancer chemotherapy; T45.1X5A Adverse effect of antineoplastic and immunosuppressive drugs, initial encounter; R50.81 Fever presenting with conditions classified elsewhere; E78.5 Hyperlipidemia, unspecified; E11.9 Type 2 diabetes mellitus without complications; E66.01 Morbid (severe) obesity due to excess calories; H54.7 Unspecified visual loss; E78.00 Pure hypercholesterolemia, unspecified; J44.9 Chronic obstructive pulmonary disease, unspecified; K21.9 Gastro-esophageal reflux disease without esophagitis; R32 Unspecified urinary incontinence; M19.90 Unspecified osteoarthritis, unspecified site; G89.29 Other chronic pain; E66.9 Obesity, unspecified; M54.9 Dorsalgia, unspecified; G43.909 Migraine, unspecified, not intractable, without status migrainosus; F41.9 Anxiety disorder, unspecified; F32.9 Major depressive disorder, single episode, unspecified; Z90.49 Acquired absence of other specified parts of digestive tract; Z90.13 Acquired absence of bilateral breasts and nipples; Z88.1 Allergy status to other antibiotic agents; Z88.8 Allergy status to other drugs, medicaments and biological substances; Z79.84 Long term (current) use of oral hypoglycemic drugs; Z90.710 Acquired absence of both cervix and uterus; R11.0 Nausea; M79.606 Pain in leg, unspecified; R50.9 Fever, unspecified; L53.9 Erythematous condition, unspecified; Z79.01 Long term (current) use of anticoagulants; Z79.899 Other long term (current) drug therapy; Z96.659 Presence of unspecified artificial knee joint
CPT/HCPCS: 36415; 36430; 56405; 73552-26-RT; 73552-RT; 80048; 80053; 80202; 82962; 83605; 85007; 85025; 85027; 85610; 86140; 86850; 86900; 86901; 86922; 87040; 87075; 87088; 87186; 87205; 87641; 97110-GO; 97110-GP; 97116-GP; 97162-GP; 97166-GO; 97530-GO; 99284; 99285-25; A9270-GY; J0692; J1642; J1815-GY; J1940; J1956; J2543; J3370; J7030; J7040; J7050; P9016

== ENCOUNTER 2021-05-21 10:06 | Day surgery (SDC) | payer MEDICARE, MEDICAID ==
[~2021-05-21 10:06] MED LIST: Lidocaine 1% 4 ML ONE; Ondansetron 4 MG/2 ML SDV ONE; Propofol 200 MG/20 ML SDV ONE; fentaNYL 250 MCG/5 ML SDV ONE
--- NOTE | 2021-05-21 11:25 | PCM.PREANE ---
Preanesthetic Assessment - Procedure Proposed Procedure: removal of portacath - Anesthesia/Transfusion/Family Hx Anesthesia History: Prior Anesthesia Without Reaction Family History of Anesthesia Reaction: No Transfusion History: Prior Transfusion Without Reaction Intubation History: Unknown - Review of Systems General: No Symptoms Pulmonary: Shortness of Breath (asthma - has not used inhaler , with activity SOB ) Cardiovascular: No Symptoms, Dyspnea on Exertion, Other (mumur ) Gastrointestinal: No Symptoms Neurological: No Symptoms Other: Reports: Easy Bleeding (coumadin ), Easy Bruising, Depression, Anxiety - Physical Assessment NPO Status Date: 05/20/21 NPO Status Time: 19:00 Vital Signs: 166/95 88 95% Height: 1.68 m Weight: 55.338 kg ASA Class: 3 Mental Status: Alert & Oriented x3 Airway Class: Mallampati = 1 Dentition: Reports: Dentures (uppers and lowers) Thyro-Mental Finger Breadths: 3 Mouth Opening Finger Breadths: 4 ROM/Head Extension: Full Lungs: Clear to Auscultation, Normal Respiratory Effort Cardiovascular: Regular Rate, Regular Rhythm - Allergies Allergies/Adverse Reactions: Allergies Allergy/AdvReac Type Severity Reaction Status Date / Time albuterol Allergy unknown Verified 05/20/21 15:47 azithromycin Allergy UNKNOWN Verified 05/20/21 15:47 celecoxib [From Celebrex] Allergy unknown Verified 05/20/21 15:47 fluticasone Allergy Other Verified 05/20/21 15:47 metoprolol Allergy unknown Verified 05/20/21 15:47 tramadol Allergy Cannot Verified 05/20/21 15:47 Remember - Blood Blood Available: No - Anesthesia Plan Pre-Op Medication Ordered: None - Acknowledgements Anesthesia Type Planned: MAC Pt an Appropriate Candidate for the Planned Anesthesia: Yes Alternatives and Risks of Anesthesia Discussed w Pt/Guardian: Yes Pt/Guardian Understands and Agrees with Anesthesia Plan: Yes PreAnesthesia Questionnaire HEENT History: Reports: Impaired Vision, Macular Degeneration Other HEENT History: wears eyeglasses, has hearing aids, dentures Cardiovascular History: Reports: Afib, High Cholesterol, Hypertension, Other (See Below) Other Cardiovascular History: aortic valve disease, SVT, heart disease Respiratory History: Reports: Asthma, COPD Other Respiratory History: patient denies COPD, patient stating asthma Gastrointestinal History: Reports: GERD Genitourinary History: Reports: Urinary Incontinence 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: Reports: Other OB/BYN History: 2 kids Musculoskeletal History: Reports: Arthritis, Back Pain, Chronic, Fracture, RA Neurological History: Reports: Migraines Psychiatric History: Reports: Anxiety, Depression Endocrine/Metabolic History: Reports: Diabetes, Type II, Obesity/BMI 30+ Hematologic History: Reports: Anemia, Other (See Below) Other Hematologic History: blood thinners, chemo treatments Immunologic History: Reports: Immunosuppression Oncologic (Cancer) History: Reports: Breast Dermatologic History: Reports: None - Infectious Disease History Infectious Disease History: Reports: Chicken Pox, Mumps - Past Surgical History Head Surgeries/Procedures: Reports: None HEENT Surgical History: Reports: Cataract Surgery, Tonsillectomy Cardiovascular Surgical History: Reports: None Respiratory Surgical History: Reports: None GI Surgical History: Reports: Appendectomy, Cholecystectomy Female Surgical History: Reports: Hysterectomy, Mastectomy, Salpingo- Oophorectomy Male Surgical History: Reports: None Endocrine Surgical History: Reports: None Neurological Surgical History: Reports: Lumbar Spine Other Neurological Surgeries/Procedures: vertebraes replaced Musculoskeletal Surgical History: Reports: Knee Replacement, ORIF Other Musculoskeletal Surgeries/Procedures:: lumbar repair Oncologic Surgical History: Reports: Mastectomy Other Oncologic Surgeries/Procedures: double Dermatological Surgical History: Reports: None - SUBSTANCE USE Tobacco Use Status *Q: Never Tobacco User Recreational Drug Use History: No - HOME MEDS Home Medications: Home Meds Acetaminophen 650 mg PO Q4H PRN 11/01/14 [History] Furosemide [Lasix] 20 mg PO DAILY 11/01/14 [History] LORazepam 1 mg PO BID 11/01/14 [History] Omeprazole 20 mg PO DAILY 11/01/14 [History] Potassium Chloride [Klor-Con M20] 20 meq PO DAILY 11/01/14 [History] Pravastatin [Pravachol] 40 mg PO BEDTIME 11/01/14 [History] A/C/E/Zinc Ox/Cupric Ox/Lutein [Macuvite Eye Care Tablet] 1 tab PO DAILY 03/31/16 [History] Ascorbic Acid [Vitamin C] 1,000 mg PO DAILY 04/06/18 [History] Calcium Carbonate/Vitamin D3 [Calcium 1,000 + D3 Caplet] 1 each PO DAILY 04/06/18 [History] dilTIAZem HCL [Cardizem] 30 mg PO TID 04/06/18 [History] Lisinopril 20 mg PO DAILY 05/03/18 [History] Multivitamin/Iron/Folic Acid [Centrum Adults Tablet] 1 each PO DAILY 05/03/18 [History] Acetaminophen/Diphenhydramine [Tylenol Pm Ex-Strength Caplet] 500 mg PO Q5H PRN 05/20/21 [History] Anastrozole [Arimidex] 1 mg PO DAILY 05/20/21 [History] Psyllium Husk [Fiber] 0.52 gm PO DAILY 05/20/21 [History] Saccharomyces Boulardii [Florastor] 250 mg PO DAILY 05/20/21 [History] Warfarin [Coumadin] 2 mg PO SA 05/20/21 [History] Warfarin [Coumadin] 4 mg PO SUMOTUWETHFR 05/20/21 [History] clonazePAM [Klonopin] 1 mg PO BID 05/20/21 [History] glipiZIDE [Glipizide ER] 5 mg PO QAM 05/20/21 [History] metFORMIN [Glucophage] 500 mg PO BID 05/20/21 [History] - CURRENT (IN HOUSE) MEDS Current Meds: Current Medications Discontinued Medications Fentanyl (Fentanyl 250 Mcg/5 Ml Sdv) Confirm Administered Dose 250 mcg .ROUTE .STK-MED ONE Stop: 05/21/21 08:50 Lidocaine HCl (Xylocaine-Mpf 1%) Confirm Administered Dose 4 mls @ as directed .ROUTE .STK-MED ONE Stop: 05/21/21 08:51 Ondansetron HCl (Ondansetron 4 Mg/2 Ml Sdv) Confirm Administered Dose 4 mg .ROUTE .STK-MED ONE Stop: 05/21/21 08:52 Propofol (Propofol 200 Mg/20 Ml Sdv) Confirm Administered Dose 200 mg .ROUTE .STK-MED ONE Stop: 05/21/21 08:50
[2021-05-21] MEDS ORDERED: Lidocaine 1%/Sod Bicarbonate in NS 8.4% 1 ML Syringe IDERM PRN (11:59)
[2021-05-21] MEDS ORDERED: Sodium Chloride 0.9% 10 ML Syringe FLUSH PRN (11:59)
[2021-05-21] MEDS ORDERED: Lactated Ringers 1,000 ML IV SCH (12:00)
[2021-05-21] MEDS ORDERED: Midazolam 1 MG/ML 2 ML SDV ONE (12:15)
[2021-05-21] MEDS: Bupivacaine 0.5%/EPINEPHrine 1:200,000 50 ML MDV ONE ×2 (12:29→13:02)
--- NOTE | 2021-05-21 13:22 | PCM48HPAN ---
Post Anesthesia Note - EVALUATION WITHIN 48HRS OF ANESTHETIC Vital Signs in Normal Range: Yes (HTN on arrival ) Patient Participated in Evaluation: Yes Respiratory Function Stable: Yes Airway Patent: Yes Cardiovascular Function Stable: Yes Hydration Status Stable: Yes Pain Control Satisfactory: Yes Nausea and Vomiting Control Satisfactory: Yes Mental Status Recovered: Yes Vital Signs: Last Vital Signs Temp 36.3 C 05/21/21 10:30 Pulse 88 05/21/21 10:30 Resp 16 05/21/21 10:30 BP 166/95 H 05/21/21 10:30 Pulse Ox 95 05/21/21 10:30
[2021-05-21 15:01] VITALS: BP 137/85; PULSE 70
--- NOTE | 2021-05-21 15:17 | PROC ---
DATE OF OPERATION: 05/21/2021 SURGEON: Toyin Fletcher MD PREOPERATIVE DIAGNOSIS: Obsolete Port-A-Cath. POSTOPERATIVE DIAGNOSIS: Obsolete Port-A-Cath. PROCEDURE: Port-A-Cath removal from the left chest. ESTIMATED BLOOD LOSS: 10 mL. ANESTHESIA: Monitored anesthesia care plus local consisting of 1% lidocaine with epinephrine. COMPLICATIONS: None. INDICATION AND CONSENT: Ms. Britton is a 70-year-old female who had undergone chemotherapy through a port that was placed 3 years ago. The patient has now completed chemotherapy and surveillance shows that she is in remission. Last chemo was less than a year ago. Because of the remission status, patient wanted to have the port taken out at this time. We discussed risks, benefits, and alternatives, and informed consent was obtained. DETAILS OF PROCEDURE: The patient was taken to the operating room, placed in supine position with left arm tucked. The patient was secured in bed appropriately. Monitored anesthesia care was induced. Time-out was performed. Preop antibiotics were not indicated for this procedure. Then, a port was felt to be in the deep subcutaneous tissue of the left chest. Local anesthetic was infiltrated at the area. Incision was made. Subcutaneous tissues were dissected sharply with scissors until the port was found. The dense layer of scar tissue was opened up. Sutures that were used to secure the port were divided and the port was removed after freeing the catheter as well from the scar tissue. The entirety of the port was removed. Once this was done, the sutures that were used to secure the port were removed. There were 3 sutures that were removed and pressure was placed at the catheter entry site to minimize bleeding. Pressure was held for 3 minutes and there was no bleeding. Once this was done, the incision which was about 4 cm was closed in 3 layers. The deeper tissue layers were closed with 3-0 Vicryl, subdermal layer closed with 3-0 Vicryl, and subcuticular skin layer was closed with 4- 0 Monocryl. Dermabond was applied and a pressure dressing over the top. The patient will be allowed to return home, will call me if any complications happen. MMODAL /[id number] [facility]ITAL[facility]idel
== END 2021-05-21 14:44 | disposition home or self-care (01) ==
LOC: JD.SDS 10:06
PROVIDERS: ATTEND Surgery
DX: Z45.2 Encounter for adjustment and management of vascular access device (principal); I48.91 Unspecified atrial fibrillation; J45.909 Unspecified asthma, uncomplicated; E11.9 Type 2 diabetes mellitus without complications; K21.9 Gastro-esophageal reflux disease without esophagitis; E78.5 Hyperlipidemia, unspecified; I10 Essential (primary) hypertension; E66.9 Obesity, unspecified; J44.9 Chronic obstructive pulmonary disease, unspecified; M81.0 Age-related osteoporosis without current pathological fracture; Z90.49 Acquired absence of other specified parts of digestive tract; Z79.899 Other long term (current) drug therapy; Z79.84 Long term (current) use of oral hypoglycemic drugs; Z88.8 Allergy status to other drugs, medicaments and biological substances; Z88.1 Allergy status to other antibiotic agents; Z98.890 Other specified postprocedural states
CPT/HCPCS: 36590; J2250; J2405; J2704; J3010; J3490; J7120; 00400; 99100

== ENCOUNTER → 2021-07-08 | Day surgery (SDC) | payer MEDICARE, MEDICAID ==
[2021-07-08] MEDS: Brimonidine 0.2% Ophth Soln 5 ML Bottle EYERT SCH ×2 (10:09→11:46)
[2021-07-08] MEDS: Phenylephrine 2.5% Ophth Soln 2 ML Bot EYERT SCH ×2 (10:12→10:21)
[2021-07-08] MEDS: Tropicamide 1% Ophth Soln 15 ML Bottle EYERT SCH ×2 (10:16→10:26)
[2021-07-08 12:16] VITALS: BP 141/92; PULSE 87
== END ==
LOC: JD.SDS 09:59
PROVIDERS: ATTEND Ophthalmology
DX: H26.491 Other secondary cataract, right eye (principal); H16.223 Keratoconjunctivitis sicca, not specified as Sjogren's, bilateral; H35.3131 Nonexudative age-related macular degeneration, bilateral, early dry stage; H35.363 Drusen (degenerative) of macula, bilateral; H18.513 Endothelial corneal dystrophy, bilateral; H02.831 Dermatochalasis of right upper eyelid; H02.834 Dermatochalasis of left upper eyelid; E11.9 Type 2 diabetes mellitus without complications; I10 Essential (primary) hypertension; Z90.49 Acquired absence of other specified parts of digestive tract; Z98.890 Other specified postprocedural states; Z79.899 Other long term (current) drug therapy; Z88.8 Allergy status to other drugs, medicaments and biological substances; Z96.1 Presence of intraocular lens

== ENCOUNTER 2023-08-23 06:40 | Day surgery (SDC) | payer MEDICARE, MEDICAID ==
[~2023-08-23 06:40] MED LIST changes: +Lactated Ringers 1,000 ML IV SCH; -Lidocaine 1% 4 ML ONE; +Morphine 8 MG, EPINEPHrine 0.3 MG, Cefuroxime 750 MG, Ketorolac 30 MG, Sodium Chloride ... PRN; -Ondansetron 4 MG/2 ML SDV ONE; -Propofol 200 MG/20 ML SDV ONE; +Sodium Chloride 0.9% 10 ML Syringe FLUSH PRN; +Sodium Chloride 0.9% 10 ML Syringe FLUSH SCH; -fentaNYL 250 MCG/5 ML SDV ONE
[2023-08-23] MEDS ORDERED: Ropivacaine 0.5% 5 MG/ML 30 ML SDV ONE (06:42)
[2023-08-23] MEDS ORDERED: Dexmedetomidine 200 MCG/2 ML SDV ONE (06:42)
[2023-08-23] MEDS ORDERED: EPINEPHrine 1 MG/ML SDV ONE (06:42)
[2023-08-23] MEDS ORDERED: Propofol 200 MG/20 ML SDV ONE ×3 (07:44→10:18)
[2023-08-23] MEDS ORDERED: ceFAZolin 2 GM Vial ONE ×2 (07:44→07:54)
[2023-08-23] MEDS ORDERED: Midazolam 1 MG/ML 2 ML SDV ONE ×2 (07:45→10:38)
[2023-08-23] MEDS ORDERED: Vancomycin 1 GM SDV ONE ×2 (07:51→08:07)
[2023-08-23] MEDS ORDERED: Tranexamic Acid 1,000 MG/10 ML Vial ONE ×2 (07:51→08:07)
[2023-08-23] MEDS ORDERED: fentaNYL 100 MCG/2 ML SDV ONE (07:54)
[2023-08-23] MEDS ORDERED: fentaNYL 100 MCG/2 ML SDV IVPUSH PRN ×2 (08:20→10:14)
[2023-08-23] MEDS ORDERED: Ondansetron 4 MG/2 ML SDV IVPUSH PRN ×2 (08:20→10:14)
[2023-08-23] MEDS ORDERED: HYDROmorphone 0.5 MG/0.5 ML Syringe IVPUSH PRN ×2 (08:20→10:14)
[2023-08-23] MEDS ORDERED: Lidocaine 1% 5 ML VIAL ONE (09:15)
[2023-08-23] MEDS ORDERED: Lidocaine 1% 2 ML ONE (10:21)
[2023-08-23] MEDS ORDERED: Lactated Ringers 1,000 ML IV ONE (10:30)
[2023-08-23] MEDS ORDERED: Ketamine 500 mg/10 ML MDV ONE (10:41)
[2023-08-23] MEDS ORDERED: Dexamethasone 4 MG/ML 5 ML MDV ONE (11:07)
[2023-08-23 12:22] LABS: HEMATOCRIT 34.6 % (37.0-47.0); HEMOGLOBIN 11.4 gm/dl (12.0-16.0)
[2023-08-23] MEDS ORDERED: oxyCODONE 5 MG Tab PO PRN (12:22)
[2023-08-23 14:36] VITALS: BP 165/70; PULSE 65
== END 2023-08-23 14:45 | disposition home or self-care (01) ==
LOC: JD.SDS 06:40
PROVIDERS: ATTEND Orthopaedic Surgery
DX: M17.11 Unilateral primary osteoarthritis, right knee (principal); I10 Essential (primary) hypertension; E11.9 Type 2 diabetes mellitus without complications; K21.9 Gastro-esophageal reflux disease without esophagitis; J44.9 Chronic obstructive pulmonary disease, unspecified; F32.A Depression, unspecified; F41.9 Anxiety disorder, unspecified; E78.00 Pure hypercholesterolemia, unspecified; I48.91 Unspecified atrial fibrillation; I47.10 Supraventricular tachycardia, unspecified; E66.9 Obesity, unspecified; Z68.41 Body mass index [BMI] 40.0-44.9, adult; Z79.01 Long term (current) use of anticoagulants; Z79.84 Long term (current) use of oral hypoglycemic drugs; Z79.899 Other long term (current) drug therapy; Z88.8 Allergy status to other drugs, medicaments and biological substances
CPT/HCPCS: 0055T; 27447; 36415; 64447; 73560; 85014; 85018; 97116; 97161; A9270; C1713; C1776; J0171; J0690; J0697; J1100; J1170; J1885; J2250; J2270; J2704; J2795; J3010; J3370; J3490; J7030; J7120; 01402; 64488; 99100

== ENCOUNTER 2024-07-31 17:26 | Emergency (ER) | payer MEDICARE, MEDICAID ==
[2024-07-31 18:16] LABS: BASOPHILS PERCENT AUTO 0.5 % (0.0-1.0); EOSINOPHILS ABSOLUTE AUTO 0.1 K/mm3 (0.0-0.4); EOSINOPHILS PERCENT AUTO 1.5 % (0.0-6.0); HEMATOCRIT 36.5 % (37.0-47.0); HEMOGLOBIN 11.3 gm/dl (12.0-16.0); IMMATURE GRAN ABSOLUTE AUTO 0.02 K/mm3 (0.00-0.05); IMMATURE GRAN PERCENT AUTO 0.3 % (0.0-0.4); LYMPHOCYTES ABSOLUTE AUTO 1.5 K/mm3 (1.0-4.8); LYMPHOCYTES PERCENT AUTO 24.9 % (24.0-44.0); MEAN CORPUSCULAR HEMOGLOBIN 26.8 pg (28.0-32.0); MEAN CORPUSCULAR VOLUME 86.7 fl (83.0-99.0); MEAN PLATELET VOLUME 10.1 fl (9.4-12.3); MONOCYTES ABSOLUTE AUTO 0.5 K/mm3 (0.0-0.8); MONOCYTES PERCENT AUTO 7.6 % (0.0-8.0); NEUTROPHILS ABSOLUTE AUTO 3.9 K/mm3 (1.8-7.7); NEUTROPHILS PERCENT AUTO 65.2 % (41.0-71.0); PLATELET COUNT,PLT 206 K/mm3 (150-400); RED BLOOD CELL COUNT 4.21 M/mm3 (4.10-5.30); WHITE BLOOD CELL COUNT,WBC 5.91 K/mm3 (3.9-11.3)
[2024-07-31 18:47] LABS: ALBUMIN 3.5 g/dl (3.4-5.0); ANION GAP 13.3 (5-15); BILIRUBIN TOTAL 0.7 mg/dL (0.2-1.0); BUN/CREATININE RATIO 17.5 (14-18); C-REACTIVE PROTEIN 0.39 mg/dL (<0.30); CALCIUM 9.1 mg/dL (8.5-10.1); CREATININE 0.8 mg/dL (0.55-1.02); EST CRCL DRUG DOSING (CG) 57.75 mL/min; POTASSIUM,K 4.3 mEq/L (3.5-5.1)
[2024-07-31 18:58] LABS: CORONAVIRUS COVID-19 NAA NEGATIVE (NEGATIVE); INFLUENZA A NAA NEGATIVE (NEGATIVE); RESPIRATORY SYNCYTIAL VIR NAA NEGATIVE (NEGATIVE)
[2024-07-31] MEDS: Doxycycline Monohydrate 100 MG Cap PO ONE (19:46)
[2024-07-31] MEDS: ClonazePAM 1 MG Tab PO STA (20:22)
[2024-07-31 20:33] VITALS: BP 154/74; PULSE 90
== END 2024-07-31 20:25 | disposition home or self-care (01) ==
LOC: JD.ED 17:26
DX: L03.113 Cellulitis of right upper limb (principal); I48.91 Unspecified atrial fibrillation; J44.9 Chronic obstructive pulmonary disease, unspecified; K21.9 Gastro-esophageal reflux disease without esophagitis; E11.9 Type 2 diabetes mellitus without complications; Z90.710 Acquired absence of both cervix and uterus; Z79.899 Other long term (current) drug therapy; Z79.84 Long term (current) use of oral hypoglycemic drugs; Z88.8 Allergy status to other drugs, medicaments and biological substances; Z88.6 Allergy status to analgesic agent; Z88.1 Allergy status to other antibiotic agents
CPT/HCPCS: 0241U; 36415; 80053; 83605; 84484; 85025; 86140; 93005; 93971; 99284; A9270-GY

== ENCOUNTER 2025-06-06 08:23 | Emergency (ER) | payer MEDICARE, MEDICAID ==
[2025-06-06] MEDS: Acetaminophen/HYDROcodone 325-5 MG Tab PO ONE (08:57)
[2025-06-06] MEDS ORDERED: Sodium Chloride 0.9% 10 ML Syringe FLUSH PRN (15:29)
[2025-06-06 17:04] VITALS: BP 130/93; PULSE 88
== END 2025-06-06 16:50 | disposition home or self-care (01) ==
LOC: JD.ED 08:23
DX: S42.201K Unspecified fracture of upper end of right humerus, subsequent encounter for fracture with nonunion (principal); I48.91 Unspecified atrial fibrillation; J44.89 Other specified chronic obstructive pulmonary disease; K21.9 Gastro-esophageal reflux disease without esophagitis; E11.9 Type 2 diabetes mellitus without complications; Z90.49 Acquired absence of other specified parts of digestive tract; Z88.1 Allergy status to other antibiotic agents; Z88.5 Allergy status to narcotic agent; Z88.8 Allergy status to other drugs, medicaments and biological substances; Z79.899 Other long term (current) drug therapy; Z79.84 Long term (current) use of oral hypoglycemic drugs; Z79.01 Long term (current) use of anticoagulants; W18.39XA Other fall on same level, initial encounter; Y93.89 Activity, other specified
CPT/HCPCS: 99284; A9270